=== PATIENT | female | born 1940 | race Caucasian/White ===

== ENCOUNTER 2018-05-20 10:50 | Outpatient (REF) | payer MEDICARE, BC, SELFPAY ==
[2018-05-20 22:16] LABS: ALT 20 U/L (12-78); AST 19 U/L (15-37); Albumin 3.8 g/dL (3.4-5.0); Alkaline Phosphatase 100 U/L (46-116); Anion Gap 9.1 mmol/L (3-11); BUN 13 mg/dL (7-18); Bilirubin, Total 0.5 mg/dL (0.2-1.0); CO2 28.9 mmol/L (21.0-32.0); CREATININE 0.92 mg/dL (0.55-1.02); Calcium 8.7 mg/dL (8.5-10.1); Chloride 104 mmol/L (98-107); Cholesterol 236 mg/dL (50-200); Estimated GFR 59.04 (mL/min/1.73m2); Glucose 103 mg/dL (70-100); HDL Cholesterol 57 mg/dL (40-60); LDL CHOLESTEROL 169 mg/dL (<100); Potassium 4.1 mmol/L (3.5-5.1); Sodium 142 mmol/L (136-145); TROPONIN-I 10.5 ug/mL (4.0-12.0); Triglyceride 98 mg/dL (30-150)
== END 2018-05-20 11:10 ==
LOC: NCHCN 10:50
PROVIDERS: PCP Family Medicine; Visit Provider Family Medicine
DX: G50.0 Trigeminal neuralgia (principal); Z51.81 Encounter for therapeutic drug level monitoring; Z79.899 Other long term (current) drug therapy
CPT/HCPCS: 80053; 80061; 83721; 80156

== ENCOUNTER 2018-06-02 00:34 | Outpatient (CLI) | payer MEDICARE, BC, SELFPAY ==
--- NOTE | 2018-06-02 11:20 | DI.MAMMO_ITS ---
SYMPTOM/DIAGNOSIS: SCREENING, [facility], Z00.00 MAMMOGRAMS: Mammograms were interpreted according to the usual protocol including computer analysis with CAD system, tomosynthesis and C view imaging. Comparison is made with prior examinations. Breast density, C. No suspicious masses or microcalcifications are seen. There are two well circumscribed nodules in the posterior right breast in the axillary region. These likely reflect lymph nodes. They were not visualized on prior examination however. Spot compression views and a right breast ultrasound are requested to evaluate these two nodular densities in the upper posterior right breast. IMPRESSION: Additional views of the right breast as described. Category 0. MQSA ASSESSMENT OF FINDINGS: Incomplete: Needs additional imaging evaluation. Category 0. Patient will receive a letter notifying them of these results. Bi-RADS category C. The breasts are heterogeneously dense, which may obscure small masses.
== END 2018-06-02 00:54 ==
PROVIDERS: PCP Family Medicine; Visit Provider Family Medicine
DX: Z12.31 Encounter for screening mammogram for malignant neoplasm of breast (principal); R92.8 Other abnormal and inconclusive findings on diagnostic imaging of breast
CPT/HCPCS: 77063; 77067

== ENCOUNTER 2018-06-03 16:18 | Outpatient (REF) | payer MEDICARE, BC, SELFPAY ==
--- NOTE | 2018-06-03 13:30 | SKI_PTH ---
PATIENT: Iona Carvalho LOC: [facility] U#:[id number] AGE/SX: 78/F ROOM: RE06/03/[address]: Magdalena Pritchett V : 1940 BED: DIS: 06/03/2018 SPEC #: [id number] RECD: 06/05/18 12:49 STATUS: MIRYAM FERMIN #: [id number] [place]: 06/03/18 13:[address]: Magdalena Pritchett V DEPT: Surgical Specimen RECD BY: Shae Law Tissues: 1 - SKIN BIOPSY(SHAVE/PUNCH) Procedures: SKIN LEVEL 4 Comments: [id number]
== END 2018-06-03 16:38 ==
LOC: NCHCN 16:18
PROVIDERS: PCP Family Medicine; Visit Provider Family Medicine
DX: L82.1 Other seborrheic keratosis (principal)
CPT/HCPCS: 88305

== ENCOUNTER 2018-06-10 00:54 | Outpatient (CLI) | payer MEDICARE, BC, SELFPAY ==
--- NOTE | 2018-06-10 10:26 | DI.COMBO_ITS ---
SYMPTOM/DIAGNOSIS: F/U MAMMO AND SPOT, NODULES FOLLOW UP MEDIOLATERAL COMPRESSION SPOT FILMS OF RIGHT BREAST AND RIGHT BREAST ULTRASOUND: Additional images are interpreted according to the usual protocol including tomosynthesis and 2D imaging. Two small, well circumscribed areas of nodularity are demonstrated, likely representing lymph nodes. At ultrasound, two small adjacent lymph nodes are identified. There is no evidence of a mass. SUMMARY: Normal lymph nodes are identified in the right breast. No mass is evident. MQSA ASSESSMENT OF FINDINGS: Negative with benign findings. Category 2. Patient will receive a letter notifying them of these results. Bi-RADS category C. The breasts are heterogeneously dense, which may obscure small masses.
== END 2018-06-10 01:14 ==
PROVIDERS: PCP Family Medicine; Visit Provider Family Medicine
DX: Z12.31 Encounter for screening mammogram for malignant neoplasm of breast (principal); R92.8 Other abnormal and inconclusive findings on diagnostic imaging of breast; N60.81 Other benign mammary dysplasias of right breast; R59.0 Localized enlarged lymph nodes
CPT/HCPCS: 76642; 77063; 77067

== ENCOUNTER 2018-11-28 07:31 | Day surgery (SDC) | payer MEDICARE, BC, SELFPAY ==
--- NOTE | 2018-11-27 12:10 | W.PIPPEYE ---
History of Present Illness Chief Complaint: Progressive decreased vision, left eye Narrative: The patient is a 78-year-old lady with history of diminished visual acuity in both eyes at both distance and near. She notes significant difficulty reading words on television and has trouble driving at night due to glare and halos. On examination she was noted to have moderate bilateral nuclear cataracts with visual acuity of 20/40 in each eye. The option of cataract surgery was offered to the patient and she wished to proceed. NOTE: The Chief Complaint, HPI, Past Medical History, Past Surgical History, Family History, Social History, Medications, and complete Ophthalmic Exam with detailed Assessment and Plan have already been documented in the patient's outpatient ophthalmic record and are not covered again in detail here. PFS Medical History History of cardiac murmur (Acute) Hx of fracture of wrist (Acute) GERD HEART PALPITATIONS History of malignant melanoma Hypercholesterolemia MRSA Meniere's disease Osteopenia Uterine prolapse (05/15/13) Surgical History COLONOSCOPY Cholecystectomy LYMPH NODE REMOVAL Skin Cancer Removal Family History Mother Personal history of malignant neoplasm Father Dementia Brother No problems noted. Social History Smoking/Tobacco Use Status: Former Tobacco Use Drug use: Never Meds Home Medications Medication Instructions Recorded Confirmed Type calcium carbonate 500 mg CH DAILY 12/06/12 11/25/18 History Red Yeast Rice BID 05/15/13 History multivitamin [Multi Vitamin Daily] 1 ea PO DAILY 05/15/13 11/25/18 History carbamazepine [Tegretol XR] 100 mg PO . PRESCRIBED 11/25/18 11/25/18 History Allergies Allergy/AdvReac Type Severity Reaction Status Date / Time Penicillins Allergy Skin Rash Unverified 11/25/18 08:49 Exam OCULAR EXAM:: Most recent ocular examination is significant for visual acuity of 20/40 OD, 20/40 OS. Intraocular pressure is 15 OD, 16 OS. Pupils equal, round, and reactive without afferent pupillary defect extraocular motility is normal clinical examination reveals pupils dilating to 4.5 mm OU. 2-3+ nuclear cataract OU. Funduscopic examination shows disc cupping of 0.4 OU with normal color. The optic nerves have good perfusion and normal color. The retinal vasculature is normal without significant tortuosity or abnormality. The maculas are normal in appearance with normal contour and foveal reflex appropriate for age. The peripheral retina and vitreous are normal. BRIGHTNESS ACUITY TESTING (BAT):: Brightness acuity testing of the left eye off is 20/40. Low is 20/50. Medium is 20/60. High is 20/80. Assessment and Plan (1) Nuclear sclerotic cataract of left eye: Current visit: No Status: Acute Assessment: Visually significant cataract, left eye. Plan: Cataract extraction with intraocular lens implantation, left eye Note: NOTE:: The details of the planned surgery, including the risks, indications,limitations,expectations,outcome and possible complications were explained to the patient. The patient understands the complications including, but not limited to: infection, hemorrhage, posterior dislocation of the lens or nuclear fragments which may require the intervention of a vitreoretinal surgeon, possible loss of the eye, or from anesthetic complications. The patient has been made aware of the option of not having surgery, that vision following surgery may not be equal to that prior to surgery, and that the planned surgery may not achieve the intended results. Following this discussion, which the patient appeared to understand, the patient wishes to proceed with cataract surgery with lens implantation of the affected eye to improve and maximize vision.
[2018-11-28] MEDS: Tetracaine 0.5% 4 ML BTL OS ×4 (08:01→09:16)
[2018-11-28 08:02] VITALS: BP 112/62; PULSE 72; RESP 16; TEMP 36.1; O2SAT 98
[2018-11-28] MEDS: Tropicam./Phenyleph. (1/2.5%) 5 ML BTL OS ×3 (08:02→08:15)
--- NOTE | 2018-11-28 08:50 | W.PM.DSUDISC ---
Discharge Plan Disposition Patient Disposition: HOME Condition: Stable Discharge Details Attending Provider: Chino Wahl Primary Care Provider: Magdalena Pritchett V Home Meds and New Rx's Prescriptions: No Action multivitamin [Daily Multi-Vitamin] 1 EACH tablet 1 ea PO DAILY RF: 0 red yeast rice BID RF: 0 calcium carbonate 500 MG tablet,chewable 500 mg CH DAILY RF: 0 carbamazepine [Tegretol XR] 100 mg Tablet Extended Release 12 Hr 100 mg PO . PRESCRIBED RF: 0 Discharge Instructions Stand Alone Forms: Post-op Topical Cataract, Danial Lovett (DSU) Discharge Orders Discharge Orders: Discharge Order (Routine); Ordered 11/28/18 Ordered By: Chino Wahl DS: Diagnosis Discharge Diagnosis (1) Nuclear sclerotic cataract of left eye: Status: Resolved (2) Status post cataract extraction and insertion of intraocular lens of left eye: Status: Chronic
--- NOTE | 2018-11-28 08:51 | ROE_ITS ---
Date of service: 11/28/18 Time of Service: 09:44 Operative Note DATE OF PROCEDURE: 11/28/18 PRE-OP DIAGNOSIS: Cataract, left eye POST-OP DIAGNOSIS: same PROCEDURE: Cataract extraction using phacoemulsification with intraocular lens implant, left eye SURGEON: Chino Wahl ANESTHESIA: MAC and local (sub-tenon's anesthetic infiltration) PATHOLOGY: none sent COMPLICATIONS: None Patient was transported to: same day Patient's condition: stable Implants: Brian and Brian Vision / [employer] Tecnis ZCB00 Indications: Progressive decreased vision due to cataract, left eye Procedure Description: CATARACT SURGERY OPERATIVE REPORT PREOPERATIVE DIAGNOSIS: Nuclear cataract, left eye POSTOPERATIVE DIAGNOSIS: Same OPERATION: Cataract extraction using phacoemulsification with posterior chamber intraocular lens implant, left eye. IOL: IOL Sweetbread Trimmer/Model: J&J Vision / RUBI Tecnis ZCB00 IOL Power: + 22.50 diopters IOL Serial Number: [id number] Optic Diameter: 6.0mm Haptic/Overall Diameter: 13.0mm PHACO INFO: Paul Planning Mediaurion Vision System with OZil and Active Fluidics Cumulative Dispersed Energy (CDE): 16.25 seconds SURGEON: Chino Wahl MD, YELENA ANESTHESIA: Monitored Anesthesia Care (MAC), with local sub-tenon's anesthetic infiltration COMPLICATIONS: None SPECIMENS: None INDICATIONS FOR PROCEDURE: The patient is a 78-year-old lady with history of diminished visual acuity her left eye secondary to the development of nuclear cataract. She was significantly symptomatic that she desired cataract surgery and attempt to improve and maximize her vision. PROCEDURE: The correct surgical eye was identified and marked as the left eye and the pupil was dilated in the preoperative area using mydriatics and cycloplegics. The dilated pupil size was 6.0 mm. Oral sedation was administered in the form of an Imprimis MKO Melt (midazolam 3mg/ketamine 25mg/ondansetron 2mg). The patient was brought to the operating room where cardiopulmonary monitoring was instituted and surgical time-out was performed, confirming the correct operative eye and IOL power. Topical anesthesia was administered and ophthalmic povidone-iodine 5% was instilled into the conjunctival fornices. Lidocaine gel was applied to the cornea and the victoriano-ocular area was prepped with Betadine 10% solution and draped in the usual sterile fashion for intraocular surgery, including an aperture drape. A Tegaderm transparent film dressing was cut in half and used to cover the lashes and lid margins. Care was taken to sequester the lashes and lid margins under the Tegaderm dressing. A lid speculum was placed between the lids of the operative eye and the Felipa-Christina operating microscope was maneuvered into position. Roque scissors were then used to make a conjunctival buttonhole approximately 6mm posterior to the limbus in the inferonasal quadrant. Blunt dissection was carried out to expose bare sclera, and a blunt-tipped sub-tenon?s anesthesia cannula was introduced and passed posteriorly along the globe where non- preserved plain lidocaine was injected into posterior sub-Tenon?s space. A sideport knife was used to make a paracentesis port superior/superiortemporal, and the anterior chamber was filled with Healon GV. A 2.4mm keratome knife was used to create a half-thickness groove at the limbus and then to construct a three-plane near-clear corneal tunnel extending 2.0mm into clear cornea in the temporal position. . A flap was raised on the anterior capsule and capsulorhexis forceps were used to complete a continuous curvilinear capsulorhexis of 5.0 mm. Balanced salt solution was then used to perform cortical cleaving hydrodissection and nuclear hydrodelineation until the lens could be freely rotated within the capsular bag. The lens nucleus was then disassembled and removed within the capsular bag and iris plane using phacoemulsification. Residual cortical material was removed using the 45-degree angled silicone I/A tip with 0.3mm port. The posterior capsule was carefully polished to remove as much residual lens epithelial cells as safely possible. The capsular bag was then inflated and the anterior chamber deepened with viscoelastic. The lens implant described above was inserted into the capsular bag using the RUBI Platin um Injector. A Kuglen hook was used to dial the IOL into position. Residual viscoelastic was then removed first from posterior to the IOL, then from the anterior chamber using the I/A handpiece. The lens implant was noted to center nicely within the capsular bag. The incisions were stromally hydrated, and the anterior chamber was reformed using BSS. Then 0.4cc of moxifloxacin 1.5mg/ml were injected into the capsular bag and anterior chamber. The incisions were checked with a Weck spear and found to be secure. Several drops of ophthalmic povidone-iodine 5% were then applied to the eye followed by two drops of Imprimis combination gatifloxacin/dexamethasone solution. The drapes were removed and a clear plastic protective eye shield was placed over the eye. The patient was then returned to Same Day Surgery in stable condition.
[2018-11-28] MEDS: Lidocaine 2% Jelly 6 ML SYR (09:18)
[2018-11-28] MEDS: Lidocaine 1% Pres-Free 5 ML VIAL (09:20)
[2018-11-28] MEDS: Balanced Salt Soln.-PLUS 500 ML BAG (09:20)
[2018-11-28] MEDS: Povidone-Iodine Ophth 30 ML BTL (09:24)
[2018-11-28 10:11] VITALS: BP 112/66; PULSE 68; RESP 16; TEMP 36.1; O2SAT 96
== END 2018-11-28 10:53 | disposition home or self-care (01) ==
PROVIDERS: PCP Family Medicine; Visit Provider Ophthalmology
PROC: (CPT 66984; principal; 2018-11-28 09:30)
DX: H25.12 Age-related nuclear cataract, left eye (principal); K21.9 Gastro-esophageal reflux disease without esophagitis
CPT/HCPCS: 66984; V2632

== ENCOUNTER 2019-01-05 08:56 | Day surgery (SDC) | payer MEDICARE, BC, SELFPAY ==
--- NOTE | 2019-01-04 18:13 | POEE_ITS ---
History of Present Illness Chief Complaint: Progressive decreased vision, right eye Narrative: The patient is a 78-year old lady with history of diminished visual acuity in both eyes, mostly at intermediate. She has significant difficulty reading words on television. She also notes significant difficulty with glare from headlights at night. On examination she was noted to have moderate bilateral nuclear cataracts with best corrected vision of 20/30 in each eye, but with significant glare disability. She underwent cataract surgery in the left eye on 11/28/2018. Postoperatively she has regained best corrected vision of 20/25 in the left eye. She now presents for cataract surgery in the right eye. NOTE: The Chief Complaint, HPI, Past Medical History, Past Surgical History, Family History, Social History, Medications, and complete Ophthalmic Exam with detailed Assessment and Plan have already been documented in the patient's outpatient ophthalmic record and are not covered again in detail here. PFSH Family History Mother Personal history of malignant neoplasm Father Dementia Brother No problems noted. Social History Smoking/Tobacco Use Status: Former Tobacco Use Alcohol Intake: current Alcohol Intake frequency: 0-2 drinks per day Alcohol type: wine Drug use: Never Do you feel safe at home: Yes Meds Home Medications Medication Instructions Recorded Confirmed Type calcium carbonate 500 mg CH DAILY 12/06/12 11/28/18 History Red Yeast Rice BID 05/15/13 History multivitamin [Multi Vitamin Daily] 1 ea PO DAILY 05/15/13 11/28/18 History carbamazepine [Tegretol XR] 100 mg PO . PRESCRIBED 11/25/18 11/28/18 History Allergies Allergy/AdvReac Type Severity Reaction Status Date / Time Penicillins Allergy Skin Rash Verified 11/28/18 07:58 Exam OCULAR EXAM:: Most recent ocular examination is significant for best corrected vision of 20/40 OD, 20/25 OS. Intraocular pressure is 15 OD, 17 OS. Pupils equal, round, and reactive without afferent pupillary defect extraocular motility is normal. Slit-lamp examination shows pupils dilating to 4.5 mm OD, 5 mm OS. 2-3+ nuclear cataract OD. Well-positioned PCIOL OS with clear posterior capsule. Dilated funduscopic examination shows disc cupping of 0.4 OU with good color. The optic nerves have good perfusion and normal color. The retinal vasculature is normal without significant tortuosity or abnormality. The m aculas are normal in appearance with normal contour and foveal reflex appropriate for age. The peripheral retina and vitreous are normal. BRIGHTNESS ACUITY TESTING (BAT):: Brightness acuity testing of the right eye off is 20/30. Low is 20/50. Medium is 20/60. On the high setting is 20/80. Assessment and Plan (1) Nuclear sclerotic cataract of right eye: Current visit: No Status: Acute Assessment: Visually significant cataract, right eye. Plan: Cataract extraction with intraocular lens implantation, right eye Note: NOTE:: The details of the planned surgery, including the risks, indications,limitations,expectations,outcome and possible complications were explained to the patient. The patient understands the complications including, but not limited to: infection, hemorrhage, posterior dislocation of the lens or nuclear fragments which may require the intervention of a vitreoretinal surgeon, possible loss of the eye, or from anesthetic complications. The patient has been made aware of the option of not having surgery, that vision following surgery may not be equal to that prior to surgery, and that the planned surgery may not achieve the intended results. Following this discussion, which the patient appeared to understand, the patient wishes to proceed with cataract surgery with lens implantation of the affected eye to improve and maximize vision.
--- NOTE | 2019-01-05 08:04 | W.PM.DSUDISC ---
Discharge Plan Disposition Patient Disposition: HOME Condition: Stable Discharge Details Attending Provider: Chino Whal Primary Care Provider: Magdalena Pritchett V Home Meds and New Rx's Prescriptions: No Action multivitamin [Daily Multi-Vitamin] 1 EACH tablet 1 ea PO DAILY RF: 0 red yeast rice BID RF: 0 calcium carbonate 500 MG tablet,chewable 500 mg CH DAILY RF: 0 carbamazepine [Tegretol XR] 100 mg Tablet Extended Release 12 Hr 100 mg PO . PRESCRIBED RF: 0 Discharge Instructions Stand Alone Forms: Post-op Topical Cataract, Danial Lovett (DSU) Discharge Orders Discharge Orders: Discharge Order (Routine); Ordered 01/05/19 Ordered By: Chino Wahl DS: Diagnosis Discharge Diagnosis (1) Nuclear sclerotic cataract of right eye: Status: Resolved (2) Status post cataract extraction and insertion of intraocular lens of right eye: Status: Chronic
--- NOTE | 2019-01-05 08:05 | ROE_ITS ---
Date of service: 01/05/19 Operative Note PRE-OP DIAGNOSIS: Cataract, right eye PROCEDURE: Cataract extraction using phacoemulsification with intraocular lens implant, right eye SURGEON: Chino Wahl ANESTHESIA: MAC and local (sub-tenon's anesthetic infiltration) ESTIMATED BLOOD LOSS: 0 PATHOLOGY: none sent COMPLICATIONS: None Patient was transported to: same day Patient's condition: stable Implants: Brian and Brian Vision / [employer] Tecnis ZCB00 i ntraocular lens Indications: Progressive decreased vision due to cataract, right eye Procedure Description: CATARACT SURGERY OPERATIVE REPORT PREOPERATIVE DIAGNOSIS: [] POSTOPERATIVE DIAGNOSIS: Same OPERATION: Cataract extraction using phacoemulsification with posterior chamber intraocular lens implant, right eye. IOL: IOL Hand Fabric Cutter/Model: J&J Pear Deck / RUBI Tecnis ZCB00 IOL Power: +[] diopters IOL Serial Number: [] Optic Diameter: 6.0mm Haptic/Overall Diameter: 13.0mm PHACO INFO: Paul My1[employer]on Vision System with OZil and Active Fluidics Cumulative Dispersed Energy (CDE): [] seconds SURGEON: Chino Wahl MD, YELENA ANESTHESIA: Monitored Anesthesia Care (MAC), with local sub-tenon's anesthetic infiltration COMPLICATIONS: None SPECIMENS: None INDICATIONS FOR PROCEDURE: [] PROCEDURE: The correct surgical eye was identified and marked as the right eye and the pupil was dilated in the preoperative area using mydriatics and cycloplegics. The dilated pupil size was [] mm. Oral sedation was administered in the form of an Imprimis MKO Melt (midazolam 3mg/ketamine 25mg/ondansetron 2mg). The patient was brought to the operating room where cardiopulmonary monitoring was instituted and surgical time-out was performed, confirming the correct operative eye and IOL power. Topical anesthesia was administered and ophthalmic povidone-iodine 5% was instilled into the conjunctival fornices. Lidocaine gel was applied to the cornea and the victoriano-ocular area was prepped with Betadine 10% solution and draped in the usual sterile fashion for intraocular surgery, including an aperture drape. A Tegaderm transparent film dressing was cut in half and used to cover the lashes and lid margins. Care was taken to sequester the lashes and lid margins under the Tegaderm dressing. A lid speculum was placed between the lids of the operative eye and the Felipa-Christina operating microscope was maneuvered into position. Roque scissors were then used to make a conjunctival buttonhole approximately 6mm posterior to the limbus in the inferonasal quadrant. Blunt dissection was carried out to expose bare sclera, and a blunt-tipped sub-tenon?s anesthesia cannula was introduced and passed posteriorly along the globe where non- preserved plain lidocaine was injected into posterior sub-Tenon?s space. A sideport knife was used to make a paracentesis port inferiortemporally, and the anterior chamber was filled with Healon GV. A 2.4mm keratome knife was used to create a half-thickness groove at the limbus and then to construct a three-plane near-clear corneal tunnel extending 2.0mm into clear cornea in the superiortemporal position. . A flap was raised on the anterior capsule and capsulorhexis forceps were used to complete a continuous curvilinear capsulorhexis of []mm. Balanced salt solution was then used to perform cortical cleaving hydrodissection and nuclear hydrodelineation until the lens could be freely rotated within the capsular bag. The lens nucleus was then disassembled and removed within the capsular bag and iris plane using phacoemulsification. Residual cortical material was removed using the I/A handpiece. The posterior capsule was carefully polished to remove as much residual lens epithelial cells as safely possible. The capsular bag was then inflated and the anterior chamber deepened with viscoelastic. The lens implant described above was inserted into the capsular bag using the RUBI Franklin Injector. A Kuglen hook was used to dial the IOL into position. Residual viscoelastic was then removed first from posterior to the IOL, then from the anterior chamber using the I/A handpiece. The lens implant was noted to center nicely within the capsular bag. The incisions were stromally hydrated, and the anterior chamber was reformed using BSS. Then 0.4cc of moxifloxacin 1.5mg/ml were injected into the capsular bag and anterior chamber. The incisions were checked with a Weck spear and found to be secure. Several drops of ophthalmic povidone-iodine 5% were then applied to the eye followed by two d rops of Imprimis combination prednisolone/gatifloxacin/bromfenac solution. The drapes were removed and a clear plastic protective eye shield was placed over the eye. The patient was then returned to Same Day Surgery in stable condition.
[2019-01-05 09:19] VITALS: BP 136/70; PULSE 69; RESP 16; TEMP 36.2; O2SAT 97
[2019-01-05] MEDS: Tropicam./Phenyleph. (1/2.5%) 5 ML BTL OD ×3 (09:31→09:45)
[2019-01-05] MEDS: Tetracaine 0.5% 4 ML BTL OD ×4 (09:31→10:33)
[2019-01-05] MEDS: Povidone-Iodine Ophth 30 ML BTL ×2 (10:33→11:02)
[2019-01-05] MEDS: Lidocaine 2% Jelly 6 ML SYR (10:33)
[2019-01-05] MEDS: Balanced Salt Soln.-PLUS 500 ML BAG (10:40)
[2019-01-05] MEDS: Lidocaine 1% Pres-Free 5 ML VIAL (10:40)
--- NOTE | 2019-01-05 11:08 | W.PM.OP ---
Date of service: 01/05/19 Time of Service: 11:08 Operative Note PRE-OP DIAGNOSIS: Cataract, right eye, with poorly dilating pupil POST-OP DIAGNOSIS: same PROCEDURE: 1. Cataract extraction by phacoemulsification with intraocular lens implantation, right eye, with pupillary expansion device SURGEON: Chino Wahl ANESTHESIA: MAC (with local sub-tenon's anesthetic injection) PATHOLOGY: none sent COMPLICATIONS: None Patient was transported to: same day Patient's condition: stable Implants: Brian and Brian / [employer] Tecnis [id number] Indications: Progressive decreased vision due to cataract, right eye, with poorly dilating pupil Procedure Description: CATARACT SURGERY OPERATIVE REPORT PREOPERATIVE DIAGNOSIS: 1. Nuclear cataract, right eye 2. Poorly dilating pupil, right eye POSTOPERATIVE DIAGNOSIS: Same OPERATION: 1. Cataract extraction using phacoemulsification with posterior chamber intraocular lens implant, right eye. 2. Pupillary dilation and iris stabilization using Malyugin Ring IOL: IOL Motorcyles Final Inspector/Model: Brian & Brian / RUBI Tecnis [id number] IOL Power: + 23.0 diopters IOL Serial Number: [id number] Optic Diameter: 6.0mm Haptic/Overall Diameter: 13.0mm PHACO INFO: Paul [employer]ion Vision System with OZil and Active Fluidics Cumulative Dispersed Energy (CDE): 14.31 seconds SURGEON: Chino Wahl MD, YELENA ANESTHESIA: Monitored Anesthesia Care (MAC), with local sub-tenon's anesthetic infiltration COMPLICATIONS: None SPECIMENS: None INDICATIONS FOR PROCEDURE: The patient is a 78-year-old lady with history of diminished visual acuity in both eyes secondary to the development of bilateral nuclear cataracts. She has already undergone cataract surgery in her left eye and is doing well postoperatively. She now presents for cataract surgery in the right eye. PROCEDURE: The correct surgical eye was identified and marked as the right eye and the pupil was dilated in the preoperative area using mydriatics and cycloplegics. The dilated pupil size was 4.5 mm. Oral sedation was administered in the form of an Imprimis MKO Melt (midazolam 3mg/ketamine 25mg/ondansetron 2mg). The patient was brought to the operating room where cardiopulmonary monitoring was instituted and surgical time-out was performed, confirming the correct operative eye and IOL power. Topical anesthesia was administered and ophthalmic povidone-iodine 5% was instilled into the conjunctival fornices. Lidocaine gel was applied to the cornea and the victoriano-ocular area was prepped with Betadine 10% solution and draped in the usual sterile fashion for intraocular surgery, including an aperture drape. A Tegaderm transparent film dressing was cut in half and used to cover the lashes and lid margins. Care was taken to sequester the lashes and lid margins under the Tegaderm dressing. A lid speculum was placed between the lids of the operative eye and the Felipa-Christina operating microscope was maneuvered into position. Roque scissors were then used to make a conjunctival buttonhole approximately 6mm posterior to the limbus in the inferonasal quadrant. Blunt dissection was carried out to expose bare sclera, and a blunt-tipped sub-tenon?s anesthesia cannula was introduced and passed posteriorly along the globe where non-preserved plain lidocaine was injected into posterior sub-Tenon?s space. A sideport knife was used to make a paracentesis port inferiortemporally. The anterior chamber was filled with Healon GV. A 2.4mm keratome knife was used to create a half-thickness groove at the limbus and then to construct a three-plane near-clear corneal tunnel extending 2.0mm into clear cornea superiortemporally. A 7.0 mm Malyugin Ring was then inserted into the pupillary space and engaged with the Kuglen hook. A flap was raised on the anterior capsule and capsulorhexis forceps were used to complete a continuous curvilinear capsulorhexis of []mm. Balanced salt solution was then used to perform cortical cleaving hydrodissection and nuclear hydrodelineation until the lens could be freely rotated within the capsular bag. The lens nucleus was then disassembled and removed within the capsular bag and iris plane using phacoemulsification. Residual cortical material was removed using the 45-degree angled silicone I/A tip with 0.3mm port. The posterior capsule was carefully polished to remove as much residual lens epithelial cells as safely possible. The capsular bag was then inflated and the anterior chamber deepened with viscoelastic. The lens implant described above was inserted into the capsular bag using the RUBI Cisne Injector. A Kuglen hook was used to dial the IOL into position. The Malyugin Ring was removed in the reverse order of its insertion. Residual viscoelastic was then removed first from posterior to the IOL, then from the anterior chamber using the I/A handpiece. The lens implant was noted to center nicely within the capsular bag. The incisions were stromally hydrated, and the anterior chamber was reformed using BSS. Then 0.4cc of moxifloxacin 1.5mg/ml were injected into the capsular bag and anterior chamber. The incisions were checked with a Weck spear and found to be secure. Several drops of ophthalmic povidone-iodine 5% were then applied to the eye followed by two drops of Imprimis combination prednisolone/gatifloxacin/bromfenac solution. The drapes were removed and a clear plastic protective eye shield was placed over the eye. The patient was then returned to Same Day Surgery in stable condition.
[2019-01-05 11:50] VITALS: BP 103/69; PULSE 85; RESP 18; TEMP 36.4; O2SAT 95
== END 2019-01-05 11:55 | disposition home or self-care (01) ==
LOC: SUR 08:56
PROVIDERS: PCP Family Medicine; Visit Provider Ophthalmology
PROC: (CPT 66982; principal; 2019-01-05 11:30)
DX: H25.11 Age-related nuclear cataract, right eye (principal); H57.09 Other anomalies of pupillary function; Z98.42 Cataract extraction status, left eye; Z96.1 Presence of intraocular lens; K21.9 Gastro-esophageal reflux disease without esophagitis
CPT/HCPCS: 66982; V2632

== ENCOUNTER 2019-05-21 11:21 | Outpatient (REF) | payer MEDICARE, BC, SELFPAY ==
[2019-05-21 21:28] LABS: HCT 38.6 % (36.0-46.0); HGB 12.5 g/dL (12.0-15.5); Mean Corp. HGB Concentration 32.4 g/dL (32.0-36.0); Mean Corpuscular Hemoglobin 29.6 pg (27.0-33.0); Mean Corpuscular Volume 91.5 fL (80-95); Mean Platelet Volume 10.1 fL (8.0-11.0); Platelet Count 321 x1000/uL (130-400); RBC 4.22 m/cumm (4.00-5.20); White Blood Cell Count 5.45 k/cumm (4.4-10.8)
[2019-05-21 22:06] LABS: ALT 21 U/L (14-59); AST 17 U/L (15-37); Albumin 3.8 g/dL (3.4-5.0); Alkaline Phosphatase 92 U/L (46-116); Anion Gap 6.9 mmol/L (3-11); BUN 13 mg/dL (7-18); Bilirubin, Total 0.3 mg/dL (0.2-1.0); CO2 28.1 mmol/L (21.0-32.0); CREATININE 0.88 mg/dL (0.55-1.02); Calcium 8.6 mg/dL (8.5-10.1); Chloride 107 mmol/L (98-107); Ferritin 58 ng/mL (8-388); Glucose 94 mg/dL (70-100); Potassium 4.4 mmol/L (3.5-5.1); Sodium 142 mmol/L (136-145); TSH (W/Ref FT4) 1.17 uIU/mL (0.36-3.74); Total Protein 6.8 g/dL (6.4-8.2); Vitamin B12 240 pg/mL (193-986)
== END 2019-05-21 11:41 ==
LOC: NCHCN 11:21
PROVIDERS: PCP Family Medicine; Visit Provider Family Medicine
DX: R53.83 Other fatigue (principal); G50.0 Trigeminal neuralgia; G25.81 Restless legs syndrome
CPT/HCPCS: 80053; 85027; 82607; 82728; 84443

== ENCOUNTER 2019-06-04 01:12 | Outpatient (CLI) | payer MEDICARE, BC, SELFPAY ==
--- NOTE | 2019-06-04 14:30 | DI.DEXA_ITS ---
EXAM: XR DEXA BONE DENSITY W/WO CHLOE INDICATION: OSTEOPOROSIS M81.0. COMPARISON: Previous examination of April 2014 TECHNIQUE: 2D digital imaging was performed. FINDINGS: DEXA scan was performed according to the usual protocol. Findings for left hip scanning are a T-scor e of -2.1 with left femoral neck T-score -2.4. Previous examination of April 2014 showed left hi p T-score of -1.5. Lumbar spine scanning shows T-score of -1.5, unchanged from April 2014. Left forearm scanning shows T-score of -2.9, prior examination of 2013 showed T-score of -2.2. IMPRESSION: Findings consistent with osteoporosis according to the WHO criteria. Lateral vertebral scanogram show s no evidence of a vertebral compression fracture.
== END 2019-06-04 01:32 ==
PROVIDERS: PCP Family Medicine; Visit Provider Family Medicine
DX: M81.0 Age-related osteoporosis without current pathological fracture (principal)
CPT/HCPCS: 77080

== ENCOUNTER 2019-07-25 17:16 | Emergency (ER) | payer MEDICARE, BC, SELFPAY ==
[2019-07-25 17:30] VITALS: BP 124/75; PULSE 84; RESP 16; TEMP 37.5; O2SAT 96
--- NOTE | 2019-07-25 18:14 | W.ED.GENAD ---
Discharge Plan Disposition Patient Disposition: HOME Condition: Good Discharge Details Chief Complaint: FacialProb Clinical Impression: Contusion of nose, Abrasion of knee, Fall Primary Care Provider: Magdalena Pritchett V ED Provider: Adriana King Home Meds and New Rx's Prescriptions: No Action multivitamin [Daily Multi-Vitamin] 1 EACH tablet 1 ea PO DAILY RF: 0 red yeast rice BID RF: 0 calcium carbonate 500 MG tablet,chewable 500 mg CH DAILY RF: 0 carbamazepine [Tegretol XR] 100 mg Tablet Extended Release 12 Hr 100 mg PO . PRESCRIBED RF: 0 Discharge Instructions Instructions: Contusion in Adults (ED) Additional Instructions: Rest activities as tolerated. Tylenol for soreness if needed. Ice to the nose if needed. Wash areas of abrasion with soap and water once or twice daily. Use antibiotic ointment over wounds. Observe for any signs of infection. Ice to the knee for swelling. Recheck with primary care doctor if not improving in the next 3 to 5 days. Return for any alarming symptoms or worsening if needed sooner. Medical Decision Making 79-year-old patient whom presents after falling directly onto her nose and forehead. Patient tripped on uneven ground fell forward denies loss of consciousness. Reports mild forehead pressure with no associated headache. Denies dizziness, nausea, vomiting. Patient has no numbness or tingling of arms or legs. Denies neck pain. Patient primarily concerned with nose abrasions and possible fracture. Denies epistaxis. No septal hematoma noted on exam. Patient has benign neurologic exam at this time. An abrasion is noted to the left knee with full range of motion associated. Patient declines x-ray of the site she has no suspicion for fracture at this time. After discussion of close observation versus CT scan of the head it is the patient and 's preference to CT the head for safety given she fell directly onto her face from a standing position. Patient has unremarkable CT of head and facial bones for acute fracture. Chronic findings are noted. Degenerative changes in the TMJ are noted which patient is aware of. Patient counseled appropriately regarding care and management of her wounds as well as observation for any worsening and follow-up for any increase or persistent knee pain. Patient reports her understanding. The patient was stable and requested discharge. Prior to discharge, my usual and customary return precautions were reviewed with the patient - this included follow-up instructions and reasons to return to the Emergency Department if conditions worsens, does not improve as expected, or other new concerns arise. HPI General Date/Time Provider Initiated Documentation: 07/25/19 17:46. HPI Narrative: Is a 79-year-old woman who tripped on uneven ground falling forward striking her head on concrete. Patient denies significant headache but does report nasal injury. Bleeding from abrasions on the skin. No epistaxis. Patient reports nasal tenderness. Patient denies dizziness, nausea, vomiting or vision change. Denies neck pain. No radiating pain into arms or legs. No associated weakness in arms or legs. Patient does admit to an abrasion to the left anterior knee but no associated pain with ambulation. Patient believes her tetanus vaccine is up-to-date. Patient ambulating without difficulty. Facial pain worse with palpation of nose. Patient is not on a blood thinner. Related Data Home Medications Medication Instructions Recorded Confirmed calcium carbonate 500 mg CH DAILY 12/06/12 07/25/19 Red Yeast Rice BID 05/15/13 multivitamin [Multi Vitamin Daily] 1 ea PO DAILY 05/15/13 07/25/19 carbamazepine [Tegretol XR] 100 mg PO . PRESCRIBED 11/25/18 07/25/19 Allergies Allergy/AdvReac Type Severity Reaction Status Date / Time Penicillins Allergy Skin Rash Verified 07/25/19 17:35 General Stated Complaint: FacialProb JAMIN: 3 Review of Systems All systems reviewed & are unremarkable except as noted in HPI and below Constitutional Constitutional: Denies chills, Denies fatigue, Denies fever(s), Denies headache(s) and Denies malaise Eyes Eyes: Denies blurry vision and Denies diplopia ENT Ears, Nose, Mouth, and Throat: Denies headache(s) and Denies neck pain Cardiovascular Cardiovascular: Denies chest pain Respiratory Respiratory: Denies cough, Denies pain on inspiration and Denies pain with cough Musculoskeletal Musculoskeletal: Denies back pain, Denies deformity, Denies limited range of motion, Denies neck pain, Denies numbness, Denies radiating pain into limb and Denies tingling Integumentary/Breasts Skin/Breast: Reports wounds Neurologic Neurologic: Denies headache(s), Denies numbness and Denies tingling Endocrine Endocrine: Denies fatigue [facility] Medical History GERD HEART PALPITATIONS History of cardiac murmur (Acute) History of malignant melanoma Hx of fracture of wrist (Acute) Right closed reduction Hypercholesterolemia Meniere's disease MRSA Osteopenia Uterine prolapse (05/15/13) Family History Mother Personal history of malignant neoplasm COLON Father Dementia Brother No problems noted. Social History Smoking/Tobacco Use Status: Former Tobacco Use Alcohol Intake: current Alcohol Intake frequency: 0-2 drinks per day Alcohol type: wine Drug use: Never Do you feel safe at home: Yes Do you feel safe in your relationship?: Yes Exam Narrative Exam Narrative: CONST: Healthy appearing patient, in no acute distress. Well hydrated. Alert and alert. HENMT: Head nomocephalic, normal to inspection. Atraumatic. Hearing grossly normal. External ear canal no erythema or swelling. TM normal bilaterally. Nose abrasions noted over nasal bridge. Pain with palpation of the nasal bridge. No septal hematoma. No obvious epistaxis. Superficial abrasions noted with deep laceration. No rhinnorhea. Oral mucosa normal. Tounge normal. Dentition normal. Normal posterior oropharynx. Uvula midline. EYES: General normal appearance. Alignment normal. Eyelids normal. Conjunctiva normal. Sclera normal. PERRL. no nystagmus NECK: Normal visual inspection. FROM. No lymphadenopathy. Trachea midline. No Midline tenderness. CHEST: Normal insepection of the chest. RESP: Normal respiratory effort. Speaking full sentences. No cough. No wheezing. No retractions. Clear to auscaltation. Breath sound equal and present bilaterally. MUSCULOSKELETAL: Normal Gait. FROM of all extremities. Distal neurovascularly intact. Sensation intact distally. Left knee abrasion. Full range of motion. No bony tenderness with palpation. Straight leg raise intact. Flexion-extension intact. No distal weakness. SKIN: Normal. Dry. No rashes. Abrasion to nasal bridge as well as left knee NEURO: Alert and awake. Speech clear. Alert and oriented x 3. Speech is clear. Cranial nerves intact as tested III - XI. Normal [id number]-hf-[id number] test. No pronator drift. Normal heel-villatoro test. No Nystagmus. Gait normal. Strength intact in all extremities. Sensation intact in all extremities. PSYCH: Normal affect. Cooperative. Course Vital Signs Vital signs: Vital Signs Temperature 37.5 C 07/25/19 17:30 Pulse 84 07/25/19 17:30 Respiratory Rate 16 07/25/19 17:30 Blood Pressure 124/75 07/25/19 17:30 Pulse Oximetry 96 07/25/19 17:30 Temperature 37.5 C 07/25/19 17:30 Temperature Source Temporal Artery Scan 07/25/19 17:30 Pulse 84 07/25/19 17:30 Respiratory Rate 16 07/25/19 17:30 Respiratory Effort 07/25/19 17:45 Blood Pressure 124/75 07/25/19 17:30 Blood Pressure Position Supine 07/25/19 17:30 Pulse Oximetry 96 07/25/19 17:30 Oxygen Delivery Method Room Air 07/25/19 17:30 Oxygen Flow Rate 0 07/25/19 17:30 Pain Level 4 07/25/19 17:30
--- NOTE | 2019-07-25 18:21 | DI.CT_ITS ---
EXAM: CT HEAD FACIAL WO CLINICAL HISTORY: fall, head strike, nasal pain TECHNIQUE: The exam was performed according to the usual protocol without contrast. COMPARISON: No exams were available for comparison FINDINGS: CT head: The ventricles and sulci are consistent with patient's age. No acute intracranial hemorrhage. No ac kaylynn midline shift or mass effect is present. The ventricles are intact. The basilar cisterns are pa tent. There are areas of decreased attenuation in the white matter consistent with small vessel isch emic disease. The visualized paranasal sinuses are clear as are the mastoid air cells. The calvariu m is intact. CT facial: The orbits and retro-orbital soft tissues are unremarkable. The visualized paranasal sinuses are luz ar. No air-fluid levels are present within the sinuses. The nasal septum and ostiomeatal complexes are unremarkable. IMPRESSION: 1. No acute intracranial process. 2. No acute facial fracture.
[2019-07-25 18:36] VITALS: BP 122/78; PULSE 70; RESP 16; O2SAT 95
--- NOTE | 2019-07-25 18:36 | DI.VRAD_ITS ---
PROCEDURE INFORMATION: Exam: CT Maxillofacial Without Contrast Exam date and time: 07/25/2019 6:19 PM Age: 79 years old Clinical history: Injury or trauma; Fall; Initial encounter; Blunt trauma (contusions or hematomas); Nose TECHNIQUE: Imaging protocol: Computed tomography images of the face without contrast. COMPARISON: No relevant prior studies available. FINDINGS: Orbits: Orbits are normal. Globes are unremarkable. Sinuses: Normal. No air-fluid levels. Bones/joints: No acute fracture. Brain: No hemorrhage. No acute large vascular territory infarct. No mass effect. There is diffuse cerebral atrophy present, consistent with this patient's age. Incidental mineralization within the bilateral basal ganglia. Soft tissues: Unremarkable. IMPRESSION: No acute intracranial abnormality. PROCEDURE INFORMATION: Exam: CT Head Without Contrast Exam date and time: 07/25/2019 6:19 PM Age: 79 years old Clinical history: Injury or trauma; Fall; Initial encounter; Blunt trauma (contusions or hematomas); Nose TECHNIQUE: Imaging protocol: Computed tomography of the head without contrast. COMPARISON: No relevant prior studies available. FINDINGS: Brain: No hemorrhage. No large vascular territory infarct. No mass effect. Ventricles: Normal. No ventriculomegaly. Bones/joints: No acute fracture. Moderate degenerative changes of the left temporomandibular joint. Sinuses: Visualized sinuses are unremarkable. No fluid levels. Mastoid air cells: Visualized mastoid air cells are well aerated. Soft tissues: Unremarkable. IMPRESSION: No acute findings. Dictated and Authenticated by: Cayetano Arroyo MD. Ordering:ALLY Wright MD
[2019-07-25 19:03] VITALS: BP 129/66; PULSE 66; RESP 16; O2SAT 96
== END 2019-07-25 19:15 | disposition home or self-care (01) ==
PROVIDERS: Emergency Provider Physician Assistant; PCP Family Medicine
DX: S00.33XA Contusion of nose, initial encounter (principal); S80.212A Abrasion, left knee, initial encounter; W01.198A Fall on same level from slipping, tripping and stumbling with subsequent striking against other object, initial encounter
CPT/HCPCS: 99284; 70450; 70486; 99285

== ENCOUNTER 2020-05-26 11:19 | Outpatient (REF) | payer MEDICARE, BC, SELFPAY ==
[2020-05-26 18:45] LABS: HCT 38.6 % (36.0-46.0); HGB 12.4 g/dL (11.2-15.7); MCH 29.4 pg (27.0-33.0); MCHC 32.1 % (32.0-36.0); MCV 91.5 fL (80-95); MPV 9.6 fL (8.0-11.0); Platelet Count 339 10^3/uL (130-400); RBC 4.22 10^6/uL (3.93-5.22); RDW 13.6 % (11.7-14.6); RDW-SD 46.4 fL
[2020-05-26 19:01] LABS: ALT 30 U/L (14-59); AST 25 U/L (15-37); Albumin 3.9 g/dL (3.4-5.0); Alkaline Phosphatase 88 U/L (46-116); Anion Gap 7.5 mmol/L (3-11); BUN 9 mg/dL (7-18); Bilirubin, Total 0.4 mg/dL (0.2-1.0); CO2 28.5 mmol/L (21.0-32.0); CREATININE 0.91 mg/dL (0.55-1.02); Calcium 9.2 mg/dL (8.5-10.1); Chloride 105 mmol/L (98-107); Estimated GFR 59.48 (mL/min/1.73m2); Glucose 100 mg/dL (74-106); Potassium 4.3 mmol/L (3.5-5.1); Sodium 141 mmol/L (136-145)
== END 2020-05-26 11:39 ==
LOC: NCHCN 11:19
PROVIDERS: PCP Family Medicine; Visit Provider Family Medicine
DX: G50.0 Trigeminal neuralgia (principal); Z79.899 Other long term (current) drug therapy
CPT/HCPCS: 80053; 85027

== ENCOUNTER 2020-05-31 00:44 | Outpatient (CLI) | payer MEDICARE, BC, SELFPAY ==
--- NOTE | 2020-05-31 09:12 | DI.MAMMO_ITS ---
EXAM: MG MAMMO SCREENING CLINICAL HISTORY: SCREENING, PREVENTIVE HEALTH CARE,Z00.00 TECHNIQUE: Mammograms were interpreted according to the usual protocol including computer analysis w [employer] system, tomosynthesis and C-view imaging. COMPARISON: FINDINGS: The breasts are heterogeneously dense. No dominant mass or clumped microcalcification is identified in either breast. The current examination is compared with previous examinations including May 27 and there has been no gross interval change in appearance in comparison with the prior studies. IMPRESSION: No specific evidence of malignancy at this time. Routine screening examinations are suggested at yea rly intervals in this age group according to the ACS ACR guidelines. BI-RADS Category 1 - Negative Breast Density - Category C - Heterogeneously dense
== END 2020-05-31 01:04 ==
PROVIDERS: PCP Family Medicine; Visit Provider Family Medicine
DX: Z12.31 Encounter for screening mammogram for malignant neoplasm of breast (principal)
CPT/HCPCS: 77063; 77067

== ENCOUNTER 2020-06-03 12:39 | Outpatient (REF) | payer MEDICARE, BC, SELFPAY ==
[2020-06-03 19:21] LABS: TROPONIN-I 8.8 ug/mL (4.0-12.0)
== END 2020-06-03 12:59 ==
LOC: NCHCN 12:39
PROVIDERS: PCP Family Medicine; Visit Provider Family Medicine
DX: Z51.81 Encounter for therapeutic drug level monitoring (principal)
CPT/HCPCS: 80156

== ENCOUNTER 2020-07-04 00:52 | Outpatient (CLI) | payer MEDICARE, BC, SELFPAY ==
--- NOTE | 2020-07-04 07:45 | DI.US_ITS ---
EXAM: US PELVIS TRANSVAGINAL CLINICAL HISTORY: postmenopausal bleeding in pt who wears pessary,N95,0 TECHNIQUE: Ultrasound performed using standard protocol. COMPARISON: US US breast RT limited from 06/10/2018 FINDINGS: Pelvic ultrasound was performed transabdominally and transvaginally. Uterus measures 6.4 x 3.2 x 3.1 cm in diameter. Myometrium is grossly unremarkable. The endometrial stripe is thickened at about 7 millimeters and shows very abnormal heterogeneous appearance with mul tiple cystic areas. The endometrium is avascular these findings are abnormal in a postmenopausal pat ient and tissue sampling is recommended to rule neoplasm. Right ovary is presumptively visualized and measures 12 x 8 x 8 millimeters. Left ovary nonvisualize d. No free fluid in the pelvis. Limited scanning of kidneys is unremarkable. IMPRESSION: Thickened heterogeneous endometrial stripe in a postmenopausal patient tissue sampling recommended to exclude neoplastic disease. DATA REPOSITORY:
== END 2020-07-04 01:12 ==
PROVIDERS: PCP Family Medicine; Visit Provider Obstetrics & Gynecology Gynecology
DX: N95.0 Postmenopausal bleeding (principal); R93.89 Abnormal findings on diagnostic imaging of other specified body structures
CPT/HCPCS: 76830; 76856

== ENCOUNTER 2020-07-04 14:48 | Outpatient (REF) | payer MEDICARE, BC, SELFPAY ==
--- NOTE | 2020-07-04 14:00 | ENDO_PTH ---
PATIENT: Iona Carvalho LOC: [facility]#:[id number] AGE/SX: 80/F ROOM: RE07/04/[address]: Sahra Garcia : 1940 BED: DIS: 07/04/2020 SPEC #: [id number] RECD: 07/04/20 15:19 STATUS: MIRYAM REQ #: [id number] [place]: 07/04/20 14:[address]: Sahra Garcia DEPT: Surgical Specimen RECD BY: Cyndee Olivarez ENTERED: 07/04/20 15:20 SP TYPE: Endo OTHR DR: Magdalena Pritchett V Tissues: 1 - ENDOCERVICAL BX/CURRETTE Procedures: GROSS AND MICRO LEVEL 4 Comments: [id number]
== END 2020-07-04 15:08 ==
LOC: LBN 14:48
PROVIDERS: PCP Family Medicine; Visit Provider Obstetrics & Gynecology Gynecology
DX: N95.0 Postmenopausal bleeding (principal)
CPT/HCPCS: 88305

== ENCOUNTER → 2020-09-01 13:29 | Outpatient (BNVA) | payer MEDICARE, BC, SELFPAY | PROVIDERS: PCP Family Medicine; Referring Provider Family Medicine; Visit Provider Physical Therapy Assistant | DX: Z12.11 Encounter for screening for malignant neoplasm of colon (principal); Z80.0 Family history of malignant neoplasm of digestive organs ==

== ENCOUNTER 2020-09-09 04:06 | Outpatient (CLI) | payer MEDICARE, BC, SELFPAY ==
[2020-09-10 16:40] LABS: COVID-19 RT-PCR Result NEGATIVE (Negative)
== END 2020-09-09 04:26 ==
PROVIDERS: PCP Family Medicine; Visit Provider Surgery
DX: Z11.52 Encounter for screening for COVID-19 (principal); Z01.818 Encounter for other preprocedural examination
CPT/HCPCS: U0003

== ENCOUNTER 2020-09-14 08:29 | Day surgery (SDC) | payer MEDICARE, BC, SELFPAY ==
--- NOTE | 2020-09-14 06:52 | W.COLOREPORT ---
Date of service: 09/14/20 Time of Service: 09:38 Colonoscopy Report Date of procedure: 09/14/20 Pre-op diagnosis general: Family history of colon cancer Post-op diagnosis procedure note: same (polyps) Procedure: Colonoscopy with polypectomy Surgeon: Sangita Camiol Anesthesia proc note operative: other (General/ASA 2/Shahzad Green CRNA) Estimated blood loss (mL): 3 Pathology: other (5 small rectal polyps) Complications: None Disposition: same day Indications: The patient is here for Colonoscopy pre-op. Her last screening was in 2009, which was unremarkable. She reports a family history of colon cancer in her mother. She has no family history of colon cancer. She has not had any bowel habit changes. -Discussed colonoscopy bowel prep as well as the procedure. Discussed possible complications of the procedure to include bleeding, pain, perforation, missed small lesion/polyp, sore throat, aspiration and adverse reaction to the medications. Questions were answered to patient?s satisfaction. No guarantees were implied or given. Prep: Miralax/Dulcolax Procedure Start Time: Procedure End Time: 10:02 Retraction Time: 18 minutes Findings: 5 small benign appearing polyps at the rectosigmoid junction Procedure Description: After informed consent was obtained the patient was taken to the procedure room and placed in a left decubitous position. Monitors were applied and a time out was done. The patients name, date of , procedure, allergies to medications and metal in their body was reviewed. The patient was then sedated. Once sedated and comfortable a rectal exam was done. External exam was normal. Internal exam revealed a normal sphincter tone and no palpable masses. The scope was then introduced and retro-flexed. No internal hemorrhoids, polyps or masses were identified on retro-flexion. The scope was then advanced to the cecum without difficulty. The ileocecal valve and appendiceal orifice were identified. The prep was good. The scope was then slowly retracted over 18 minutes back into the rectum. Polyps were removed with cold forceps in the rectum at the rectosigmoid junction. There was mild rojas-diverticulosis noted. The scope was removed and the patient was woken up and taken back to Same day surgery in stable condition. The patient tolerated the procedure well and there were no immediate complications. Follow up: The patient should follow up as needed if they develop changes in bowel habits or other new gastrointestinal complaints.
--- NOTE | 2020-09-14 06:53 | W.PM.DSUDISC ---
Discharge Plan Disposition Patient Disposition: HOME Condition: Good Discharge Details Reason For Visit: Colonoscopy Attending Provider: Sangita Camilo Primary Care Provider: Magdalena Pritchett V Home Meds and New Rx's Prescriptions: Continued Glucosamine-Chondr (boswellia) 281-948-21-1-3 mg tablet 1 tab PO DAILY RF: 0 multivitamin [Daily Multi-Vitamin] 1 EACH tablet 1 ea PO DAILY RF: 0 Systane Balance 0.6 % drops 1 drp ophthalmic (eye) DAILY PRNRF: 0 cholecalciferol (vitamin D3) 50 mcg (2,000 unit) capsule 50 mcg PO DAILY RF: 0 calcium carbonate 500 MG tablet,chewable 500 mg PO DAILY RF: 0 carbamazepine [Tegretol XR] 100 mg Tablet Extended Release 12 Hr 100 mg PO . PRESCRIBED RF: 0 Discontinued polyethylene glycol 3350 17 gram/dose powder 238 g PO ONCE Qty: 238 RF: 0 bisacodyl [Dulcolax (bisacodyl)] 5 mg tablet,delayed release (DR/EC) 5 mg PO ONCE Qty: 4 RF: 0 cholecalciferol (vitamin D3) [Vitamin D3] 50 mcg (2,000 unit) Tablet 50 mcg PO DAILY RF: 0 Discharge Instructions Instructions: Colorectal Polyps (DC), Diverticulosis (DC) Additional Instructions: Findings: 5 small polyps, most likely benign Follow up: as needed Please call if you develop: fevers >101.5 Nausea or Vomiting Abdominal pain that is not transient DAY SURGERY UNIT POST ENDOSCOPY INSTRUCTIONS 1. Because there will be medication in your system for the next 24 hours, you may feel a little sleepy. Your coordination will be affected. Therefore: a. Do not drive or operate dangerous equipment for 24 hours. b. Do not drink alcohol beverages for 24 hours (not even beer). c. Plan to go home and rest for the day. 2. Generally there are no restrictions on your activity after a day or so has gone by, but you may feel a bit fatigued for a few days. 3 After you arrive home you may have a light meal and return to a normal diet as you can tolerate it without feeling sick to your stomach. 4. After surgery, you may feel pain or discomfort. This should be only transient, but if it persists please contact your doctor. 5. If there are any questions regarding the findings of your procedure, please feel free to contact your doctor. 6. If you are unable to contact your doctor with a problem, contact the hospital at [phone]. 7. Continue all your regular medications unless directed otherwise. I understand the above instructions and have no questions. Signature of Patient or Responsible Adult Escort Date/Time Name of Responsible Adult Escort Signature of Nurse Date/Time Activity:: Activity as Tolerated Diet:: high fiber diet Discharge Orders Discharge Orders: Discharge Order (Routine); Ordered 09/14/20 Ordered By: Sangita Camilo
[2020-09-14 08:44] VITALS: BP 139/83; PULSE 84; RESP 18; TEMP 36.3; O2SAT 99
[2020-09-14] MEDS: Lactated Ringers 1,000 ML 80 ML IV (09:19)
[2020-09-14 10:40] VITALS: BP 107/71; PULSE 67; RESP 16; TEMP 36.2; O2SAT 98
--- NOTE | 2020-09-14 10:56 | BOWEL_PTH ---
PATIENT: Iona Carvalho LOC: [facility] U#:[id number] AGE/SX: 80/F ROOM: RE09/14/[address]: Sangita Camilo MD : [id number] BED: DIS: 09/14/2020 SPEC #: [id number] RECD: 09/14/20 12:52 STATUS: MIRYAM REQ #: [id number] [place]: 09/14/20 10:[address]: Sangita Camilo DEPT: Surgical Specimen RECD BY: Shae Law ENTERED: 09/14/20 12:53 SP TYPE: Bowel OTHR DR: Magdalena Pritchett V Tissues: 1 - BIOPSY BOWEL Procedures: GROSS AND MICRO LEVEL 4 Comments: [id number]
== END 2020-09-14 10:52 | disposition home or self-care (01) ==
LOC: SUR 08:29
PROVIDERS: PCP Family Medicine; Visit Provider Surgery
PROC: 0DJD8ZZ Inspection of Lower Intestinal Tract, Via Natural or Artificial Opening Endoscopic (ICD-10-PCS; CPT 45378; principal; 2020-09-14 10:00)
DX: Z12.11 Encounter for screening for malignant neoplasm of colon (principal); Z80.0 Family history of malignant neoplasm of digestive organs; K57.30 Diverticulosis of large intestine without perforation or abscess without bleeding; K62.1 Rectal polyp
CPT/HCPCS: 45380; 88305

== ENCOUNTER 2021-12-13 12:55 | Emergency (ER) | payer MEDICARE, SELFPAY ==
[2021-12-13 13:15] VITALS: BP 144/85; PULSE 81; RESP 16; TEMP 36.2; O2SAT 98
--- NOTE | 2021-12-13 14:00 | DI.RAD_ITS ---
Exam(s) XR KNEE RT 4V AP,LAT,ZACHERY,PAT EXAM: XR KNEE RT 4V AP,LAT,ZACHERY,PAT CLINICAL HISTORY: fall TECHNIQUE: COMPARISON: No exams were available for comparison FINDINGS: Four views were obtained. There are severe degenerative changes of the medial tibiofemoral joint wit h marked loss of the cartilaginous joint space. There is an apparent mildly displaced fracture of the patella, probably with mild comminution. There is a large suprapatellar joint effusion. No additional fracture seen. IMPRESSION: RADIATION DOSE DELIVERED: Total DLP
--- NOTE | 2021-12-13 14:02 | W.ED.GENAD ---
Discharge Plan Disposition Patient Disposition: HOME Condition: Good Discharge Details Clinical Impression: Patella fracture Primary Care Provider: Magdalena Pritchett V ED Provider: Elliot Jamison Home Meds and New Rx's Prescriptions: No Action calcium carbonate 500 MG tablet,chewable 500 mg PO DAILY 0RF carbamazepine [Tegretol XR] 100 mg Tablet Extended Release 12 Hr 200 mg PO BID 0RF Label Comments: 11/25/18 PT states 2 tabs BID, and 1 tab at noon. PG carbamazepine 100 mg tablet,chewable 100 mg PO .NOON 0RF Label Comments: CHEW AND SWALLOW 2 TABLETS BY MOUTH EVERY MORNING 1 TABLET AT NOON AND 2 TABLETS AT BEDTIME Discharge Instructions Instructions: Swollen Knee Joint (ED) Additional Instructions: Immobilizer at all times when up and about until you are seen by orthopedics Apply ice to the affected area 20 minutes every hour while awake Referral to orthopedics was placed for your behalf, expect a call from the office to schedule follow use the walker at all times tylenol or motrin for the pain HPI General Date/Time Provider Initiated Documentation: 12/13/21 14:02. HPI Narrative: Patient fell onto her right knee while walking. Believe that she tripped. She was holding her grandson's hand. Injury to the right heel. Positive swelling. Pain worse with movement. Moderate to severe pain. Related Data Home Medications Medication Instructions Recorded Confirmed calcium carbonate 200 mg calcium 500 mg PO DAILY 12/06/12 12/13/21 (500 mg) chewable tablet carbamazepine 100 mg 200 mg PO BID 11/25/18 12/13/21 tablet,extended release,12 hr (Tegretol XR) carbamazepine 100 mg chewable 100 mg PO .NOON 12/13/21 12/13/21 tablet Allergies Allergy/AdvReac Type Severity Reaction Status Date / Time Penicillins Allergy Skin Rash Verified 12/13/21 13:19 General Stated Complaint: Orthopedic JAMIN: 4 Review of Systems Narrative: Constitutional negative for fever or chills. He ENT negative. Cardiovascular negative respiratory negative. GI negative negative skin see HPI. Skin abrasions to the right knee. Neuro PFSH All Active Problems Status post cataract extraction and insertion of intraocular lens of left eye (Chronic 11/28/18) Family history of colon cancer (Acute) Post-menopausal bleeding (Acute) History of fall (Acute) Memory deficit (Acute) Restless leg syndrome (Acute) Osteoporosis (Chronic) Skin lesion (Acute) Trigeminal neuralgia (Acute) Rx with Carbamazepine. Lung nodule (Acute) Urethral caruncle (Acute) 06/2020. Most likely etiology of postmenopausal bleeding - Patella fracture (Acute) History of endometrial biopsy (Acute) 06/2020: Result-atrophic cystic changes. No dysplasia. 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 Pt removes and cleans it on reg basis. Status post cataract extraction and insertion of intraocular lens of right eye (Chronic 01/05/19) Medical History (Updated 12/13/21 @ 15:09 by Elliot Jamison MD) GERD HEART PALPITATIONS History of cardiac murmur It was something that was dx when I was a sophmore in highschool, but nobody has heard it, and I've never had an incident. History of malignant melanoma Hx of fracture of wrist Right closed reduction Hypercholesterolemia Meniere's disease MRSA Osteopenia Uterine prolapse (05/15/13) Surgical History Cholecystectomy COLONOSCOPY LYMPH NODE REMOVAL R Arm, Axilla - Pt states no BP or IV's to R arm Skin Cancer Removal Family History Mother Personal history of malignant neoplasm COLON Father Dementia Brother No problems noted. Social History Smoking/Tobacco Use Status: Former Tobacco Use Quit Date: 08/26/07 Smoking risk assessment performed?: Yes Alcohol Intake: current Alcohol Intake frequency: 0-2 drinks per day Alcohol type: wine Drug use: Never Substance use type: does not use Household members: spouse Housing: house current occupation: Retired. Do you feel safe at home: Yes Do you feel safe in your relationship?: Yes History History 3 Para 3 Hx # Term Pregnancies 3 Multiple births Hx # Pregnancies Ectopic pregnancies AB induced Hx Number of Living Children AB spontaneous Exam Narrative Exam Narrative: Awake alert Gravity x3. Calm no acute distress HEENT negative Pulmonary normal work of breathing Cardiac cap refill Right knee. Significant effusion. Limited range of motion secondary to effusion. Positive pain Course xrays reviewed with Dr Bennum- positive patella Fx, plan - walker /knee immobilizer and ortho follow up Vital Signs Vital signs: Vital Signs Temperature 36.2 C L 12/13/21 13:15 Pulse 81 12/13/21 13:15 Respiratory Rate 16 12/13/21 13:15 Blood Pressure 144/85 H 12/13/21 13:15 Pulse Oximetry 98 12/13/21 13:15 Temperature 36.2 C L 12/13/21 13:15 Temperature Source Temporal Artery Scan 12/13/21 13:15 Pulse 81 12/13/21 13:15 Respiratory Rate 16 12/13/21 13:15 Respiratory Effort 12/13/21 13:15 Blood Pressure 144/85 H 12/13/21 13:15 Blood Pressure Position Supine 12/13/21 13:15 Pulse Oximetry 98 12/13/21 13:15 Oxygen Delivery Method Room Air 12/13/21 13:15 Oxygen Flow Rate 0 12/13/21 13:15 Pain Level 10 12/13/21 13:15
[2021-12-13 15:38] VITALS: BP 138/82; PULSE 70; RESP 16; TEMP 36.8; O2SAT 99
== END 2021-12-13 15:35 | disposition home or self-care (01) ==
PROVIDERS: Emergency Provider Emergency Medicine; PCP Family Medicine
DX: S82.091A Other fracture of right patella, initial encounter for closed fracture (principal); W18.39XA Other fall on same level, initial encounter
CPT/HCPCS: 99283; 73564

== ENCOUNTER 2021-12-20 13:31 | Outpatient (CLI) | payer MEDICARE, SELFPAY ==
--- NOTE | 2021-12-20 11:15 | DI.RAD_ITS ---
Exam(s) XR KNEE RT 2V AP,LAT EXAM: XR KNEE RT 2V AP,LAT INDICATION: R PATELLA FRACTURE. COMPARISON: CR XR KNEE RT 4V AP,LAT,ZACHERY,PAT from 12/13/2021 TECHNIQUE: 2D digital imaging was performed. Two views. FINDINGS: There has been no change in alignment of the patellar fracture, without significant separation of fra gments. Decreased joint effusion. Degenerative changes greatest of the medial femoral tibial joint DATA REPOSITORY: RADIATION DOSE DELIVERED:
== END 2021-12-20 13:32 | disposition home or self-care (01) ==
PROVIDERS: PCP Family Medicine; Referring Provider Family Medicine; Visit Provider Physician Assistant
DX: S82.001A Unspecified fracture of right patella, initial encounter for closed fracture (principal); X58.XXXA Exposure to other specified factors, initial encounter
CPT/HCPCS: 99214; 73560

== ENCOUNTER 2021-12-27 11:31 | Outpatient (CLI) | payer MEDICARE, SELFPAY ==
--- NOTE | 2021-12-27 11:15 | DI.RAD_ITS ---
Exam(s) XR KNEE RT 2V AP,LAT EXAM: XR KNEE RT 2V AP,LAT INDICATION: follow up fracture. COMPARISON: CR XR KNEE RT 2V AP,LAT from 12/20/2021 TECHNIQUE: 2D digital imaging was performed. Two views. FINDINGS: There has been no change in alignment of the patellar fracture. There the joint effusion has decreas ed in size. Severe degenerative changes are again noted in the medial femoral tibial joint. DATA REPOSITORY: RADIATION DOSE DELIVERED:
== END 2021-12-27 11:32 | disposition home or self-care (01) ==
LOC: DIORS 11:31
PROVIDERS: PCP Family Medicine; Referring Provider Family Medicine; Visit Provider Physician Assistant
DX: S82.091D Other fracture of right patella, subsequent encounter for closed fracture with routine healing (principal); X58.XXXD Exposure to other specified factors, subsequent encounter; M17.11 Unilateral primary osteoarthritis, right knee
CPT/HCPCS: 99213; 73560

== ENCOUNTER 2022-02-02 12:01 | Outpatient (CLI) | payer MEDICARE, SELFPAY ==
--- NOTE | 2022-02-02 11:45 | DI.RAD_ITS ---
Exam(s) XR KNEE RT 2V AP,LAT EXAM: XR KNEE RT 2V AP,LAT CLINICAL HISTORY: f/u R PATELLA FRACTURE. TECHNIQUE: 2D digital imaging was performed of the right knee. Two views obtained. AP and latter v iews were obtained. COMPARISON: CR XR KNEE RT 2V AP,LAT from 12/27/2021 FINDINGS: BONES: There has been no change in alignment of the patellar fracture. No new fractures identified. No bony destructive lesion is seen. JOINTS: The knee is normally aligned. There is a small joint effusion. Stable degenerative changes a re seen in the knee. SOFT TISSUE: Normal. IMPRESSION: Stable patellar fracture. DATA REPOSITORY: RADIATION DOSE DELIVERED:
== END 2022-02-02 12:02 | disposition home or self-care (01) ==
LOC: DIORS 12:01
PROVIDERS: PCP Family Medicine; Referring Provider Family Medicine; Visit Provider Student in an Organized Health Care Education/Training Program
DX: M25.461 Effusion, right knee; S82.091D Other fracture of right patella, subsequent encounter for closed fracture with routine healing; X58.XXXD Exposure to other specified factors, subsequent encounter
CPT/HCPCS: 99213; 73560

== ENCOUNTER 2022-03-15 11:45 | Outpatient (CLI) | payer MEDICARE, SELFPAY ==
--- NOTE | 2022-03-15 11:00 | DI.RAD_ITS ---
Exam(s) XR KNEE RT 2V AP,LAT EXAM: XR KNEE RT 2V AP,LAT CLINICAL HISTORY: RIGHT PATELLA FRACTURE. TECHNIQUE: 2D digital imaging was performed. COMPARISON: CR XR KNEE RT 2V AP,LAT from 02/02/2022 FINDINGS: Two views Again noted is advanced narrowing of the medial compartment and degenerative subarticular cyst in the outer aspect of the medial femoral condyle articular surface. Lateral compartment exhibits normal h eight. Patellofemoral compartment degenerative changes. Small amount of increased joint fluid IMPRESSION: Advanced degenerative changes again noted. DATA REPOSITORY: RADIATION DOSE DELIVERED:
== END 2022-03-15 11:46 | disposition home or self-care (01) ==
LOC: DIORS 11:45
PROVIDERS: PCP Family Medicine; Referring Provider Family Medicine; Visit Provider Student in an Organized Health Care Education/Training Program
DX: S82.001D Unspecified fracture of right patella, subsequent encounter for closed fracture with routine healing (principal); X58.XXXD Exposure to other specified factors, subsequent encounter
CPT/HCPCS: 99213; 73560

== ENCOUNTER 2022-08-14 18:09 | Outpatient (REF) | payer MEDICARE, SELFPAY ==
[2022-08-14 16:41] LABS: ALT 22 U/L (14-59); AST 26 U/L (15-37); Albumin 4.1 g/dL (3.4-5.0); Alkaline Phosphatase 89 U/L (46-116); Anion Gap 6.4 mmol/L (3-11); BUN 14 mg/dL (7-18); Bilirubin, Total 0.3 mg/dL (0.2-1.0); CO2 30.6 mmol/L (21.0-32.0); CREATININE 0.9 mg/dL (0.55-1.02); Calcium 8.8 mg/dL (8.5-10.1); Calculated LDL 155 mg/dL (<100); Chloride 102 mmol/L (98-107); Cholesterol 232 mg/dL (<200); Estimated GFR 63.83 (mL/min/1.73m2); Glucose 105 mg/dL (74-106); HDL Cholesterol 67 mg/dL (40-60); Potassium 4.3 mmol/L (3.5-5.1); Sodium 139 mmol/L (136-145); Total Protein 6.9 g/dL (6.4-8.2); Triglyceride 50 mg/dL (<150)
== END 2022-08-14 18:10 | disposition home or self-care (01) ==
LOC: NCHCN 18:09
PROVIDERS: PCP Family Medicine; Visit Provider Family Medicine
DX: Z79.899 Other long term (current) drug therapy (principal); G50.0 Trigeminal neuralgia
CPT/HCPCS: 80053; 80061

== ENCOUNTER 2022-09-03 02:38 | Outpatient (CLI) | payer MEDICARE, SELFPAY ==
--- NOTE | 2022-09-03 | DI.US_ITS ---
Exam(s) US BREAST LT COMPLETE MG MAMMO DIAGNOSTIC BI EXAM: MG MAMMO DIAGNOSTIC BI CLINICAL HISTORY: LT BREAST LUMP N63.24 LUMP OR MASS N63.0. COMPARISON: 2013 through 2019 TECHNIQUE: Craniocaudal and mediolateral oblique Full Field Digital Mammography views of both breast s with Computer Aided Diagnosis followed by Tomosynthesis and left breast ultrasound. FINDINGS: Mammography/Tomosynthesis: Masses/Architectural Distortion: None seen. Microcalcifications: No suspicious pleomorphic-type are seen. Skin Thickening/Nipple Retraction: None. Left breast US: Echotexture: Normal appearance of the glandular tissue. Shadowing: No suspicious foci. Cyst: None. Solid lesions: None seen. Ductal dilation: None. IMPRESSION: 1. No evidence of malignancy is noted. 2. Unless there is more urgent need, follow-up screening mammography is recommended, as per [place] [employer] guidelines. BI-RADS Category 1 - Negative Breast Density - Category C - Heterogeneously dense Breast density category C or D implies that the patient has dense breast tissue. Dense breast tissue is very common and is not abnormal but dense breast tissue can make it harder to find cancer on a ma mmogram. Also, dense breast tissue may increase their breast cancer risk. This information about the result of the mammogram report was provided to the patient to raise their awareness. Use this report when you speak with the patient about their risks for breast cancer, which includes their family hist ory. At that time, you may recommend for more screening tests (Ultrasound or MRI) as they might be us eful based on their risk. A negative radiographic report should not delay biopsy if a dominant or clinically suspicious mass is present. Up to ten percent of cancers are not identified on mammography. A negative report may reinforce clinical impression. Adenosis and dense breasts may obscure an underlying neoplasm. False positive reports average 6 to 10%. Patient will receive a letter notifying them of these results.
== END 2022-09-03 02:58 ==
LOC: DI 02:38
PROVIDERS: PCP Family Medicine; Visit Provider Family Medicine
DX: R92.8 Other abnormal and inconclusive findings on diagnostic imaging of breast (principal)
CPT/HCPCS: 76642; 77062; 77066; G0279

== ENCOUNTER 2023-02-12 10:16 | Emergency (ER) | payer MEDICARE, SELFPAY ==
[2023-02-12 10:20] VITALS: BP 129/77; PULSE 73; RESP 16; TEMP 36.6; O2SAT 97
--- NOTE | 2023-02-12 10:45 | DI.RAD_ITS ---
Exam(s) XR PELVIS W OBLIQUES 3V XR HIP LT AP LAT ONLY CLINICAL HISTORY: Left hip pain. TECHNIQUE: 2D digital imaging was performed of the left hip. Five views were obtained. AP pelvis, oblique and lateral left hip views were obtained. COMPARISON: CR LEFT HIP COMPLETE from 09/01/2010 CR ABDOMEN 2 VIEW FLAT, UPRIGHT from 12/06/2012 CR XR DEXA BONE DENSITY W/WO CHLOE from 06/04/2019 CR XR HIP LT AP LAT ONLY from 02/12/2023 FINDINGS: BONES: There is a cortical deformity of the inferior left pubic ramus. No bony destructive lesion is seen. JOINTS: No dislocation present. The sacroiliac joints are well maintained. There is mild narrowing o f the hip joints bilaterally. The symphysis pubis is unremarkable. SOFT TISSUE: Normal. IMPRESSION: 1. Deformity of the left inferior pubic ramus suspicious for fracture. Please correlate with patient 's clinical history. A CT scan of the pelvis may be obtained for further evaluation. 2. Degenerative changes of the hips bilaterally. DATA REPOSITORY: RADIATION DOSE DELIVERED:
--- NOTE | 2023-02-12 11:00 | W.ED.GENAD ---
Discharge Plan Disposition Patient Disposition: Home Discharge Details Clinical Impression: Closed fracture of left inferior pubic ramus, Closed fracture of superior ramus of left pubis, Closed fracture of sacrum Primary Care Provider: Magdalena Pritchett V ED Provider: Patrice Little Home Meds and New Rx's Prescriptions: Continued calcium carbonate 200 mg calcium (500 mg) tablet,chewable 500 mg PO DAILY PRN carbamazepine [Tegretol XR] 100 mg Tablet Extended Release 12 Hr 200 mg PO BID Patient Comments: 11/25/18 PT states 2 tabs BID, and 1 tab at noon. PG carbamazepine 100 mg tablet,chewable 100 mg PO .NOON Patient Comments: CHEW AND SWALLOW 2 TABLETS BY MOUTH EVERY MORNING 1 TABLET AT NOON AND 2 TABLETS AT BEDTIME Discharge Instructions Additional Instructions: Please read all of the information that accompanies these instructions. You were seen in the emergency department for your hip pain. You were found to have fractures of your left pubic bone. The inferior and superior pubic rami. You were also found to have a left sacral alar fracture. Orthopedics was consulted and they advised that you could bear weight as tolerated. If you have worsening pain please return to the emergency department. For your pain please take medications as follows: 1. Take acetaminophen (Tylenol), 1,000 mg (two 500 mg tabs) every 6 hours 2. Take ibuprofen (Advil), 200 mg every 8 hours. Please follow-up with orthopedic team in the next week. A referral for home health has been placed for you by physical therapy. Discharge Data Discharge Date/Time-TO BE ENTERED AT DEPARTURE: 02/12/23 15:01 Medical Decision Making This is an overall very well-appearing normothermic and not tachycardic 82-year-old female with left hip pain 10 days status post fall concerning for fracture. Her x-ray was read as concerning for inferior pubic ramus fracture for which radiology advised CT scan. We do not orthopedics on-call f CT scan shows a fracture well with consult orthopedics at [facility]. No pain out of proportion to suggest necrotizing soft tissue infection. Will defer basic labs at this point. Left foot warm and well-perfused so not concern for vascular insult. 2:09 PM Patient had an abnormal CT scan showing left pubic bone superior and inferior pubic rami fracture and a left sacral alar fracture. We will have physical therapy evaluate the patient for need for hospitalization. 2:50 PM Patient ambulated well with PT. SHE USED A WALKER. SHE REPORTS HAVING A WALKER AT HOME. PT will help organize home physical therapy. Patient felt comfortable with plan to be discharged. Have asked health aboriginal community council member Estee to have the patient seen by orthopedic team in the next week. She has normal renal function and we will include low-dose ibuprofen in addition to acetaminophen for analgesia. I have given her return indications including any recurrent falls or worsening pain. 3:55 PM With continuous pillowcase cutter Jackie Summers signed paperwork to have home physical therapy see the patient. HPI General Date/Time Provider Initiated Documentation: 02/12/23 10:59. HPI Narrative: This is an 82-year-old female arriving via private vehicle following a fall. Patient reports that approximately 10 days ago she was standing up on a third step when she attempted to step down. She missed the step. This caused her to fall and landed on her left hip. She did not strike her head. She denies preceding chest pain nausea vomiting dysuria and frequency. No headaches. She has been taking acetaminophen at home for pain. She tried calling orthopedics for follow-up but could not get in for an appointment until February. She has subsequently had pain when ambulating. Related Data Home Medications Medication Instructions Recorded Confirmed carbamazepine 100 mg 200 mg PO BID 11/25/18 02/12/23 tablet,extended release,12 hr (Tegretol XR) carbamazepine 100 mg chewable 100 mg PO .NOON 12/13/21 02/12/23 tablet calcium carbonate 200 mg calcium 500 mg PO DAILY PRN 12/20/21 02/12/23 (500 mg) chewable tablet Allergies Allergy/AdvReac Type Severity Reaction Status Date / Time Penicillins Allergy Skin Rash Verified 02/12/23 10:24 General Stated Complaint: Orthopedic JAMIN: 4 PFSH All Active Problems Closed fracture of left inferior pubic ramus (Acute) Closed fracture of superior ramus of left pubis (Acute) Closed fracture of sacrum (Acute) Right patella fracture (Acute 12/13/21) Status post cataract extraction and insertion of intraocular lens of left eye (Chronic 11/28/18) Family history of colon cancer (Acute) Post-menopausal bleeding (Acute) History of fall (Acute) Memory deficit (Acute) Restless leg syndrome (Acute) Osteoporosis (Chronic) Skin lesion (Acute) Trigeminal neuralgia (Acute) Rx with Carbamazepine. Lung nodule (Acute) Urethral caruncle (Acute) 06/2020. Most likely etiology of postmenopausal bleeding - History of endometrial biopsy (Acute) 06/2020: Result-atrophic cystic changes. No dysplasia. 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 Pt removes and cleans it on reg basis. Status post cataract extraction and insertion of intraocular lens of right eye (Chronic 01/05/19) Medical History (Updated 02/12/23 @ 14:54 by Patrice Little MD) GERD HEART PALPITATIONS History of cardiac murmur It was something that was dx when I was a sophmore in highschool, but nobody has heard it, and I've never had an incident. History of malignant melanoma Hx of fracture of wrist Right closed reduction Hypercholesterolemia Meniere's disease MRSA Osteopenia Uterine prolapse (05/15/13) Surgical History Cholecystectomy COLONOSCOPY LYMPH NODE REMOVAL R Arm, Axilla - Pt states no BP or IV's to R arm Skin Cancer Removal Family History Mother Personal history of malignant neoplasm COLON Father Dementia Brother No problems noted. Social History Smoking/Tobacco Use Status: Former Tobacco Use Quit Date: 08/26/01 Smoking risk assessment performed?: Yes Alcohol Intake: current Alcohol Intake frequency: a few times a week Alcohol type: wine Drug use: Never Substance use type: does not use Household members: spouse Housing: house current occupation: Retired. Current gender identity: female Do you feel safe at home: Yes Do you feel safe in your relationship?: Yes History History 3 Para 3 Hx # Term Pregnancies 3 Multiple births Hx # Pregnancies Ectopic pregnancies AB induced Hx Number of Living Children AB spontaneous Exam Narrative Exam Narrative: General: Well-appearing in no acute distress speaking in complete sentences. Head: Normocephalic, atraumatic. Eye: Pupils equal, round reactive to light. Extraocular eye movements intact. No conjunctival injection. No scleral icterus. Ear, nose, mouth, throat: Grossly normal inspection. Normal voice, handling secretions normally. Neck: Trachea midline. Cardiovascular: Well-perfused distal extremities. Respiratory: Nonlabored respiration. Gastrointestinal: Nondistended abdomen. Musculoskeletal: Patient has tenderness overlying her left buttock. No laceration. No abrasions. Patient is able to straight leg raise. She has minimal pain in her left hip on passive flexion and extension at the hip. Left foot warm well perfused with 2+ PT and DP pulses. Patient is able to dorsi and plantarflex well left with 5 out of 5 strength. She has a superficial abrasion underneath a Band-Aid on her left knee. Skin: Normal for age and race, grossly normal temperature and turgor. No acute rash. Neurologic: Alert and appropriate, no apparent acute deficits. Psychiatric: Mood and manner are appropriate. Grooming and personal hygiene are appropriate. Course Vital Signs Vital signs: Vital Signs Temperature 36.6 C 02/12/23 10:20 Pulse 73 02/12/23 10:20 Respiratory Rate 16 02/12/23 10:20 Blood Pressure 129/77 02/12/23 10:20 Pulse Oximetry 97 02/12/23 10:20 Temperature 36.6 C 02/12/23 10:20 Temperature Source Skin 02/12/23 10:20 Pulse 73 02/12/23 10:20 Respiratory Rate 16 02/12/23 10:20 Blood Pressure 129/77 02/12/23 10:20 Blood Pressure Position Sitting 02/12/23 10:20 Pulse Oximetry 97 02/12/23 10:20 Oxygen Delivery Method Room Air 02/12/23 10:20 Oxygen Flow Rate 0 02/12/23 10:20 Pain Level 8 02/12/23 10:20
--- NOTE | 2023-02-12 12:27 | DI.CT_ITS ---
Exam(s) CT PELVIC WO EXAM: CT PELVIC WO CLINICAL HISTORY: Concern for left inferior pubic ramus. TECHNIQUE: Imaging Protocol: Axial computed tomography images with coronal and sagittal reformatted images were created and reviewed. COMPARISON: CR XR HIP LT AP LAT ONLY from 02/12/2023 CR XR PELVIS W OBLIQUES 3V from 02/12/2023 FINDINGS: Bones: There is an acute minimally displaced fracture involving the left pubic bone just lateral to the symphysis pubis. It extends into the symphysis pubis superiorly. There is also an acute fractur e seen at the junction of the anterior left acetabulum and the superior pubic ramus. There is a mild ly displaced inferior pubic ramus fracture. There is also disruption of the anterior cortex of the l eft sacral ala consistent with a fracture. There is no involvement of the left sacroiliac joint. No cellulitic or osteomyelitic changes are identified. There are degenerative changes seen in the lowe r lumbar spine and the left hip. No lytic or sclerotic lesions are identified. Soft Tissues: Diverticulosis is seen in the sigmoid colon. A normal appendix is visualized. There i s atherosclerosis present. There is a fat containing small umbilical hernia. There is a 2 mm nonobs tructing stone in the lower pole of the left kidney. IMPRESSION: 1. Fractures involving the left pubic bone, including the superior and inferior pubic rami, and the l eft sacral ala. Please see the above discussion for complete details. 2. Findings were discussed with the emergency department on 02/12/2023. RADIATION DOSE DELIVERED: 410.69mGy.cm Total DLP 410.69mGy.cmTotal DLP DATA REPOSITORY: All CT scans at this facility are submitted to the National Radiology Data Registry (NRDR) Dose Index Registry (DIR) with the [employer] (A[employer]). RADIATION OPTIMIZATION: All CT scans at this facility use at least one of these dose optimization te chniques: automated exposure control; mA and/or kV adjustment per patient size (includes targeted exa ms where dose is matched to clinical indication); or iterative reconstruction.
[2023-02-12] MEDS: Lidocaine 5% Patch 1 PATCH TP (13:15)
[2023-02-12 13:41] VITALS: BP 111/74; PULSE 69; RESP 18; TEMP 36.3; O2SAT 96
--- NOTE | 2023-02-12 14:37 | NUR.NOTE ---
Nursing Note: Pt ambulating with PT using walker. Pain improves with walking. Pt and pt's visitor understand next steps.
--- NOTE | 2023-02-12 14:52 | IN_ITS ---
Date of service: 02/12/23 Time of Service: 14:52 PT Notes Physical Therapy Emergency Department Initial Evaluation Date: 02/12/2023 Referring Doctor: Patrice Little MD PT Orders: PT CONSULT: Please evaluate ability to ambulate with a walker and left sacral fracture Precautions: Fall. Standard. Weightbearing as tolerated on the left LE. Patient Profile/Admitting Diagnosis: Vani is an 82-year-old female who sustained a left inferior and superior pubic rami as well as a left sacral ala fractures from a mechanical fall 10 days ago. Referral for PT was sent to determine ability to ambulate and for discharge recommendations. PMHX: All Active Problems? Right patella fracture (Acute 12/13/21) Status post cataract extraction and insertion of intraocular lens of left eye (Chronic 11/28/18) Family history of colon cancer (Acute) Post-menopausal bleeding (Acute) History of fall (Acute) Memory deficit (Acute) Restless leg syndrome (Acute) Osteoporosis (Chronic) Skin lesion (Acute) Trigeminal neuralgia (Acute) Rx with Carbamazepine.Lung nodule (Acute) Urethral caruncle (Acute) 06/2020. Most likely etiology of postmenopausal bleeding - History of endometrial biopsy (Acute) 06/2020: Result-atrophic cystic changes. No dysplasia. 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 Pt removes and cleans it on reg basis.Status post cataract extraction and insertion of intraocular lens of right eye (Chronic 01/05/19) Medical History?(Updated 01/13/22 @ 00:01 by LIUDMILA HAIR) GERD HEART PALPITATIONS History of cardiac murmur It was something that was dx when I was a sophmore in highschool, but nobody has heard it, and I've never had an incident. History of malignant melanoma Hx of fracture of wrist Right closed reductionHypercholesterolemia Meniere's disease MRSA Osteopenia Uterine prolapse (05/15/13) Surgical History? Cholecystectomy COLONOSCOPY LYMPH NODE REMOVAL R Arm, Axilla - Pt states no BP or IV's to R arm Skin Cancer Removal Social History/Home Situation: Lives with in a private home with 3 steps to enter. Independent with a ll aspects of ADLs prior to admission. Equipment Owned/DME: FWW, ilateral axillary crutches Subjective: Reports 3?4/10 pain on the side and back of her left hip aggravated by weight bearing, 1/10 at rest. Denies headache, chest pain, and lightheadedness throughout session. Objective: General Observation: Seated on wheelchair. Galdino present in room throughout evaluation. In NAD. Mental Status: Alert and oriented as to person, place, time, and purpose. Able to pay attention, focus, and respond appropriately. Pain: As above Vital Signs: Closely monitored by nursing staff ROM: Right Lower Extremity: Hip flexion WFL. Hip abduction WFL. Knee flexion WFL. Ankle dorsiflexion WFL. Ankle plantarflexion WFL. Left Lower Extremity: Hip flexion lacks the last 25% of available motion. Hip abduction lacks the last 25% of available motion. Knee flexion WFL. Ankle dorsiflexion WFL. Ankle plantarflexion WFL. Strength: Right Lower Extremity: Hip flexors 5/5. Hip abductors 4/5. Knee flexors 4/5. Knee extensors 4/5. Ankle dorsiflexors 4/5. Ankle plantarflexors 4/5. Left Lower Extremity: Hip flexors 3-/5. Hip abductors 3-/5. Knee flexors 4-/5. Knee extensors 4-/5. Ankle dorsiflexors 4/5. Ankle plantarflexors 4/5. Bed Mobility/Transfers: Sit to stand with supervision, cues provided for hand placement Stand to sit with supervision, cues provided for hand placement Gait: Instructed patient with level surface ambulation of 75 feet feet requiring stand by assist. Sep -to gait pattern. Missy decreased. Step height on L decreased. Step length on L decreased. Balance: Static Sitting: Normal Dynamic Sitting: Normal Static Standing: Fair Dynamic Standing: Fair Special Tests: Mobility Limitations Standardized Measure [facility] AM-PAC 6 clicks Basic Mobility Inpatient Short Form: Raw Score: 23 CMS Score: 11% deficit Informed Consent/Education: Patient and patient's were instructed in purpose of PT consult, appropriate/safe use of FWW for all transfers and ambulation. Agreeable to proceed with established PT POC to achieve personal goals. Assessment: Patient will require the use of a front wheel walker to offload pain on the left pelvic area with weight bearing, maximize independence, and reduce fall risk at home. Patient presents with clinical signs and symptoms consistent with current/admitting diagnoses that have resulted to mobility limitations, gait instability, generalized weakness, and overall ADL decline as demonstrated by the following impairment level findings: 1. Decreased strength to left pelvis/hip major muscle groups 2. Impaired standing balance 3. Impaired activity tolerance 4. Limitation of joint range of motion in left hip Impairments are contributing to the following functional limitations: 1. Difficulty with ambulation without assistive device 2. Increased completion time for mobility ADL performance 3. Increased risk for falls 4. Difficulty with managing steps alone safely Patient is assessed as a 29607 low complexity based on the following: History: 82-year-old female with past medical history as indicated above Examination: Demonstrable impairment in strength, balance, and mobility level with underlying impairments and functional limitations as exhibited above as well as deficit score of 11% utilizing the [facility] Mobility Inpatient Short Form Presentation: Evolving Decision Makin low complexity Goals: N/A. PT evaluation and functional mobility training only. Plan of Care/Treatment Plan: N/A. PT evaluation and functional mobility training only. DISCHARGE RECOMMENDATIONS: [] Home with no services [] [X] Home with services. Patient will benefit from home health PT services in order to progress mobility level using least restrictive assistive ambulatory device, assess home safety, identify additional equipment needs, and establish a functional maintenance program that will increase ability of patient to remain at home. [] Home with outpatient PT [] [] SNF for continued rehabilitation [] [] Disposal Worker Care [] [] SNF versus LTC based on ability to participate and progress [] TREATMENT CODE/TIME: 72165 x 26 minutes beginning at 14:23 PM. Thank you for the opportunity to participate in the care of this patient. Anita Taylor PT, DPT, CLT [facility] [place], [place]
--- NOTE | 2023-02-12 14:53 | NUR.NOTE ---
Nursing Note: referral faxed to ortho
--- NOTE | 2023-02-13 08:26 | OCONE_ITS ---
Date of service: 02/12/23 Time of Service: 14:30 Assessment and Plan Assessment and plan (1) Closed fracture of left inferior pubic ramus: Status: Acute Assessment and plan: Case discussed with emergency room provider. Imaging reviewed. Left LC-1 pelvic ring injury including high ramus, inferior ramus, and sacral ala fractures. Stable. Recommend progressive ambulation: Weightbearing as tole rated with assist device like walker. Physical therapy. DVT prophylaxis until mobile. Follow-up as outpatient in 2-3 weeks. (2) Closed fracture of superior ramus of left pubis: Status: Acute (3) Closed fracture of sacrum: Status: Acute PFSH All Active Problems Closed fracture of left inferior pubic ramus (Acute) Closed fracture of superior ramus of left pubis (Acute) Closed fracture of sacrum (Acute) Right patella fracture (Acute 12/13/21) Status post cataract extraction and insertion of intraocular lens of left eye (Chronic 11/28/18) Family history of colon cancer (Acute) Post-menopausal bleeding (Acute) History of fall (Acute) Memory deficit (Acute) Restless leg syndrome (Acute) Osteoporosis (Chronic) Skin lesion (Acute) Trigeminal neuralgia (Acute) Rx with Carbamazepine. Lung nodule (Acute) Urethral caruncle (Acute) 06/2020. Most likely etiology of postmenopausal bleeding - History of endometrial biopsy (Acute) 06/2020: Result-atrophic cystic changes. No dysplasia. 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 Pt removes and cleans it on reg basis. Status post cataract extraction and insertion of intraocular lens of right eye (Chronic 01/05/19) Medical History (Updated 02/12/23 @ 14:54 by Patrice Little MD) GERD HEART PALPITATIONS History of cardiac murmur It was something that was dx when I was a sophmore in highschool, but nobody has heard it, and I've never had an incident. History of malignant melanoma Hx of fracture of wrist Right closed reduction Hypercholesterolemia Meniere's disease MRSA Osteopenia Uterine prolapse (05/15/13) Surgical History Cholecystectomy COLONOSCOPY LYMPH NODE REMOVAL R Arm, Axilla - Pt states no BP or IV's to R arm Skin Cancer Removal Family History Mother Personal history of malignant neoplasm COLON Father Dementia Brother No problems noted. Social History Smoking/Tobacco Use Status: Former Tobacco Use Quit Date: 08/26/01 Smoking risk assessment performed?: Yes Alcohol Intake: current Alcohol Intake frequency: a few times a week Alcohol type: wine Drug use: Never Substance use type: does not use Household members: spouse Housing: house current occupation: Retired. Current gender identity: female Do you feel safe at home: Yes Do you feel safe in your relationship?: Yes History History 3 Para 3 Hx # Term Pregnancies 3 Multiple births Hx # Pregnancies Ectopic pregnancies AB induced Hx Number of Living Children AB spontaneous Results Last Vital Signs Temp 36.3 C L 02/12/23 13:41 Pulse 69 02/12/23 13:41 Resp 18 02/12/23 13:41 BP 111/74 02/12/23 13:41 Pulse Ox 96 02/12/23 13:41
== END 2023-02-12 15:01 | disposition home or self-care (01) ==
PROVIDERS: Emergency Provider Emergency Medicine; PCP Family Medicine
DX: S32.592A Other specified fracture of left pubis, initial encounter for closed fracture (principal); S32.512A Fracture of superior rim of left pubis, initial encounter for closed fracture; S32.10XA Unspecified fracture of sacrum, initial encounter for closed fracture; W19.XXXA Unspecified fall, initial encounter
CPT/HCPCS: 97161; 99284; 72190; 72192; 73502

== ENCOUNTER 2023-02-27 14:04 | Outpatient (CLI) | payer MEDICARE, SELFPAY ==
--- NOTE | 2023-02-27 13:30 | DI.RAD_ITS ---
Exam(s) XR PELVIS AP EXAM: XR PELVIS AP CLINICAL HISTORY: pelvis fx f/u. TECHNIQUE: 2D digital imaging was performed. AP view COMPARISON: CR XR PELVIS W OBLIQUES 3V from 02/12/2023 FINDINGS: There has been no change in the alignment of the left pubic ramus, ischial and acetabular fractures. Sacral fractures are faintly visualized on the right. No new abnormalities. DATA REPOSITORY: RADIATION DOSE DELIVERED:
== END 2023-02-27 14:05 | disposition home or self-care (01) ==
LOC: DIORS 14:04
PROVIDERS: PCP Family Medicine; Referring Provider Family Medicine; Visit Provider Student in an Organized Health Care Education/Training Program
DX: S32.82XD Multiple fractures of pelvis without disruption of pelvic ring, subsequent encounter for fracture with routine healing; W19.XXXD Unspecified fall, subsequent encounter
CPT/HCPCS: 99203; 99213; 72170

== ENCOUNTER 2023-08-16 20:58 | Outpatient (REF) | payer MEDICARE, SELFPAY ==
[2023-08-16 15:45] LABS: HCT 39.3 % (36.0-46.0); HGB 12.5 g/dL (11.2-15.7); MCH 28.2 pg (27.0-33.0); MCHC 31.8 % (32.0-36.0); MCV 89 fL (80-95); MPV 9.6 fL (8.0-11.0); Platelet Count 357 10^3/uL (130-400); RBC 4.44 10^6/uL (3.93-5.22); RDW 14.5 % (11.7-14.6); RDW-SD 47.3 fL; WBC 6.05 10^3/uL (4.4-10.8)
[2023-08-16 16:10] LABS: Albumin 3.6 g/dL (3.4-5.0); Alkaline Phosphatase 94 U/L (46-116); Calcium 9.2 mg/dL (8.5-10.1)
[2023-08-16 16:12] LABS: ALT 20 U/L (14-59); AST 15 U/L (15-37); Anion Gap 7.3 mmol/L (3-11); BUN 16 mg/dL (7-18); Bilirubin, Total 0.2 mg/dL (0.2-1.0); CO2 28.7 mmol/L (21.0-32.0); CREATININE 0.8 mg/dL (0.55-1.02); Chloride 104 mmol/L (98-107); Estimated GFR 73.06 (mL/min/1.73m2); Glucose 104 mg/dL (74-106); Potassium 4.4 mmol/L (3.5-5.1); Sodium 140 mmol/L (136-145); TROPONIN-I 8.9 ug/mL (4.0-12.0)
== END 2023-08-16 20:59 | disposition home or self-care (01) ==
LOC: NCHCN 20:58
PROVIDERS: PCP Family Medicine; Visit Provider Family Medicine
DX: G50.0 Trigeminal neuralgia (principal); Z79.899 Other long term (current) drug therapy; Z51.81 Encounter for therapeutic drug level monitoring
CPT/HCPCS: 80053; 85027; 80156

== ENCOUNTER 2024-09-15 17:19 | Outpatient (REF) | payer MEDICARE, SELFPAY ==
[2024-09-15 16:20] LABS: HCT 38.9 % (36.0-46.0); HGB 12.4 g/dL (11.2-15.7); MCH 28.6 pg (27.0-33.0); MCHC 31.9 % (32.0-36.0); MCV 90 fL (80-95); MPV 9.8 fL (8.0-11.0); Platelet Count 300 10^3/uL (130-400); RBC 4.33 10^6/uL (3.93-5.22); RDW 13.9 % (11.7-14.6); RDW-SD 45.8 fL; WBC 6.35 10^3/uL (4.4-10.8)
[2024-09-15 16:47] LABS: ALT 23 U/L (14-59); AST 20 U/L (15-37); Albumin 3.9 g/dL (3.4-5.0); Alkaline Phosphatase 96 U/L (46-116); BUN 19 mg/dL (7-18); Bilirubin, Total 0.29 mg/dL (0.2-1.0); CREATININE 0.9 mg/dL (0.55-1.02); Calcium 8.8 mg/dL (8.5-10.1); Chloride 108 mmol/L (98-107); Estimated GFR 63.04 (mL/min/1.73m2); Glucose 97 mg/dL (74-106); Potassium 4.4 mmol/L (3.5-5.1); Sodium 144 mmol/L (136-145); TROPONIN-I 7.3 ug/mL (4.0-12.0); Total Protein 6.9 g/dL (6.4-8.2)
== END 2024-09-15 17:20 | disposition home or self-care (01) ==
LOC: NCHCN 17:19
PROVIDERS: PCP Family Medicine; Visit Provider Family Medicine
DX: G50.0 Trigeminal neuralgia (principal); Z00.00 Encounter for general adult medical examination without abnormal findings
CPT/HCPCS: 80053; 85027; 80156

== ENCOUNTER 2024-10-29 01:48 | Outpatient (CLI) | payer MEDICARE, SELFPAY ==
--- NOTE | 2024-10-29 | DI.DEXA_ITS ---
Exam(s) XR DEXA BONE DENSITY W/WO CHLOE EXAM: XR DEXA BONE DENSITY W/WO CHLOE CLINICAL HISTORY: Z78.0 Asymptomatic menopausal state TECHNIQUE: Hologic Horizon C densitometer analysis of left hip, lumbar spine and left forearm. Lat eral survey image of the thoracic and lumbar spine. COMPARISON: DX DEXA BONE DENSITY WITH CHLOE from 05/20/2014 CR XR DEXA BONE DENSITY W/WO CHLOE from 06/04/2019 FINDINGS: Lateral view of the thoracic and lumbar spine shows no evidence of compression fractures. Bone mineral density measurements of the lumbar spine correspond to a total T-score of -1.6, in the osteopenic range. This is not significantly changed from the prior exams. Bone mineral density measurements of the left hip correspond to a total T-score of -2.5. This repre sents a 6.7 percent decrease from 603052. 4 percent decrease from 2013. The femoral neck T-score is -2.6, in the osteoporotic range.. Theleft forearm bone mineral density measurements correspond to a T-score of the distal 3rd of -2.9, in the osteoporotic range. This is not changed from 2019 but represents a 7.3 percent decrease fro m 2013. IMPRESSION: Osteopenia of the spine. Osteoporosis of the hip and forearm.
--- NOTE | 2024-10-29 08:57 | DI.MAMMO_ITS ---
Exam(s) MAMMO SCREENING EXAM: MAMMO SCREENING CLINICAL HISTORY: Z12.31 screening. TECHNIQUE: Bilateral full field digital CC and MLO mammographic images were obtained with 3D tomosyn thesis and utilizing computer aided detection (CAD). COMPARISON: Prior mammograms were reviewed. FINDINGS: There has been no significant change in the appearance and distribution of the fibroglandular tissue. There are no new spiculated masses nor malignant appearing microcalcification groups. There is no significant architectural distortion nor skin thickening-retraction. IMPRESSION: No radiographic evidence of malignancy. BI-RADS Category 1 - Negative Breast Density - Category C - Heterogeneously dense Breast density Category C or D implies that the patient has dense breast tissue. Dense breast tissue can make it harder to find cancer on a mammogram. Dense breast tissue is also associated with an incr eased risk of breast cancer. This information about the result of the mammogram report was provided to the patient to raise their awareness. Use this report when you speak with the patient about their risks for breast cancer, which includes their family history. At that time, you may recommend additional screening tests (Ultrasoun d or MRI) as these tests may add significant information. A negative radiographic report should not delay biopsy if a dominant or clinically suspicious mass is present. Up to ten percent of cancers are not identified on mammography. A negative report may reinforce clinical impression. Adenosis and dense breasts may obscure an underlying neoplasm. False positive reports average 6 to 10%. Patient will receive a letter notifying them of these results.
== END 2024-10-29 02:08 ==
PROVIDERS: PCP Family Medicine; Visit Provider Family Medicine
DX: Z78.0 Asymptomatic menopausal state (principal); Z12.31 Encounter for screening mammogram for malignant neoplasm of breast; M85.89 Other specified disorders of bone density and structure, multiple sites; Z13.820 Encounter for screening for osteoporosis
CPT/HCPCS: 77063; 77067; 77080

== ENCOUNTER 2024-11-12 22:25 | Outpatient (REF) | payer MEDICARE, SELFPAY ==
--- NOTE | 2024-11-12 14:00 | SKI_PTH ---
PATIENT: Iona Carvalho LOC: [facility]#:[id number] AGE/SX: 84/F ROOM: RE11/12/[address]: Magdalena Pritchett V : 1940 BED: DIS: 11/12/2024 SPEC #: [id number] RECD: 11/13/24 12:04 STATUS: MIRYAM FERMIN #: [id number] [place]: 11/12/24 14:[address]: Magdalena Pritchett V DEPT: Surgical Specimen RECD BY: Shae Law Tissues: 1 - SKIN BIOPSY(SHAVE/PUNCH) Procedures: SKIN LEVEL 4 Comments: [id number]
== END 2024-11-12 22:26 | disposition home or self-care (01) ==
LOC: NCHCN 22:25
PROVIDERS: PCP Family Medicine; Visit Provider Family Medicine
DX: L57.0 Actinic keratosis (principal)
CPT/HCPCS: 88305

== ENCOUNTER 2025-04-01 08:33 | Emergency (ER) | payer MEDICARE, SELFPAY ==
[2025-04-01 08:37] VITALS: BP 142/87; PULSE 79; RESP 18; TEMP 36.6; O2SAT 97
--- NOTE | 2025-04-01 08:46 | ED.GENADUL_ITS ---
Discharge Plan Disposition Patient Disposition: Home Condition: Stable Discharge Details Clinical Impression: Lip abscess Primary Care Provider: Magdalena Pritchett V ED Provider: Terry Lopez Home Meds and New Rx's Prescriptions: New mupirocin [Centany] 2 % ointment 1 applic topical BID Qty: 15 0RF Continued calcium carbonate 200 mg calcium (500 mg) tablet,chewable 500 mg PO DAILY PRN ibuprofen [Advil] 200 mg tablet 200 mg PO Q6H PRN carbamazepine [Tegretol XR] 100 mg Tablet Extended Release 12 Hr 200 mg PO BID Patient Comments: 11/25/18 PT states 2 tabs BID, and 1 tab at noon. PG carbamazepine 100 mg tablet,chewable 100 mg PO .NOON Patient Comments: CHEW AND SWALLOW 2 TABLETS BY MOUTH EVERY MORNING 1 TABLET AT NOON AND 2 TABLETS AT BEDTIME Discharge Instructions Instructions: Skin Abscess, Mupirocin Additional Instructions: You were seen in the emergency department for your growth on your lip we have many months that drained recently, pebble-like discharge as well as some pus, so you likely had a small infected sebaceous cyst which mineral deposit form a small infection around it. Please keep the area draining with hot compresses as we discussed multiple times per day, apply mupirocin ointment on the area, please return for any severe increase in swelling, facial swelling or redness, difficulty opening or closing your mouth. If this grows does come back in atypical I suggest going to the machine boss and having it biopsied. Referrals: Magdalena Pritchett MD [Primary Care Provider, Medicine] Discharge Data Discharge Date/Time-TO BE ENTERED AT DEPARTURE: 04/01/25 09:06 HPI General Date/Time Provider Initiated Documentation: 04/01/25 08:43 . HPI Narrative: 85 year-old female presents to ED today by POV/ambulating with a chief complaint of L lower lip lesion for the past 6 months, that was hard in the middle, recently became inflamed, popped open and drained a small amount of pus and a hard pebble-like object. Quality described as currently painless, drained, no radiation to vocal changes, neck swelling, tongue swelling, active drainage, fever, facial redness/swelling. Severity is described as mild. Palliating factors include popped with a sterilized needle at home. Provoking factors include nothing specific. Patient not anticoagulated. Related Data Home Medications ?Medication ?Instructions ?Recorded ?Confirmed carbamazepine 100 mg 200 mg PO BID 11/25/1807/25 tablet,extended release,12 hr (Tegretol XR) carbamazepine 100 mg chewable 100 mg PO .NOON 12/13/21 07/25/23 tablet calcium carbonate 500 mg PO DAILY PRN 12/20/21 07/25/23 ibuprofen 200 mg tablet (Advil) 200 mg PO Q6H PRN 01/1507/25/23 mupirocin 2 % topical ointment 1 applic topical BID #1 5 grams 04/01/25 (Centany) Previous Rx's ?Medication ?Instructions ?Recorded mupirocin 2 % topical ointment 1 applic topical BID #1 5 grams 04/01/25 (Centany) Allergies Allergy/AdvReac Type Severity Reaction Status Date / Time Penicillins Allergy Skin Rash Verified 07/24/23 14:30 General Stated Complaint: GenMedical JAMIN: 4 Review of Systems All systems reviewed & are unremarkable except as noted in HPI and below Exam Narrative Exam Narrative: GENERAL APPEARANCE: Well-nourished, non-toxic, awake and alert, atraumatic, no acute distress. SKIN: Warm, pink, dry, intact, without rashes/lesions/ulcerations. HEAD: Normocephalic, atraumatic, normal hair distribution for gender/age. EYES: Normal conjunctiva, no exudates on lids/lashes. ENT: Nares patent, no circumoral cyanosis, no facial swelling, small scabbed over defined lip abscess left lower canthus, left lower lip. No erythema or active drainage NECK: Supple, trachea midline, painless cervical ROM. LUNGS/CHEST: Non-labored respirations, normal A/P diameter, symmetrical expansion, no chest wall deformity HEART (CV/PV): No peripheral edema, no JVD. ABDOMEN: Soft, non-distended, no guarding. MSK: Normal ROM, no swelling/deformity to bilateral UEs or LEs, moving all extremities without weakness, no cyanosis, spine midline without tenderness, normal curvature. NEURO: Mental Status AAOx4 - alert to person, place, time, events No facial droop, no forehead involvement. Motor: No focal weakness - strength 5/5 in bilateral UEs and LEs, proximal and distal, symmetric. Sensory: sensation intact to light touch globally. Gait normal: patient ambulated without ataxia into ED room. PSYCH: euthymic, cooperative, pleasant, appropriate speech Course Vital Signs Vital signs: Vital Signs Temperature 36.6 C 04/01/25 08:37 Pulse 79 04/01/25 08:37 Respiratory Rate 18 04/01/25 08:37 Blood Pressure 142/87 H 04/01/25 08:37 Pulse Oximetry 97 04/01/25 08:37 Temperature 36.6 C 04/01/25 08:37 Temperature Source Tympanic 04/01/25 08:37 Pulse 79 04/01/25 08:37 Respiratory Rate 18 04/01/25 08:37 Blood Pressure 142/87 H 04/01/25 08:37 Blood Pressure Position Supine 04/01/25 08:37 Pulse Oximetry 97 04/01/25 08:37 Oxygen Delivery Method Room Air 04/01/25 08:37 Oxygen Flow Rate 0 04/01/25 08:37 Medical Decision Making This dictation utilizes [id number] dictation software and may contain unedited grammatical errors. 85 year-old female presents to ED today by POV/ambulating with a chief complaint of L lower lip lesion for the past 6 months, that was hard in the middle, recently became inflamed, popped open and drained a small amount of pus and a hard pebble-like object. Quality described as currently painless, drained, no radiation to vocal changes, neck swelling, tongue swelling, active drainage, fever, facial redness/swelling. Severity is described as mild. Palliating factors include popped with a sterilized needle at home. Provoking factors include nothing specific. Patients' medical history:. MRSA, history of malignant melanoma. Family and social history: Noncontributory. Pertinent exam findings / vital signs include small scabbed ulceration of the canthus of the left lower lip, no active drainage, no facial swelling or erythema, no other vesicular lesions, no neck swelling. Differential / pathologies of concern include infected sebaceous cyst, small abscess, malignancy. Diagnostic studies of: -None. Interventions of: -Rx for mupirocin. ED Course/Assessment/Plan: 85-year-old female had a 6-month period where she had nodular swelling on her left lower lip, recently became inflamed and was drained at home. The son reports taking a pebble-like piece out of it as well as minimal amount of pus, suspect she has a small abscess with an infected sebaceous cyst, I stressed applying hot compresses and mupirocin to the area to resolution. States that if it does not resolve or if it grows back she needs to have the area biopsied at dermatology visit. Findings not consistent with malignancy, angioedema, Lalo's angina. Disposition of lip abscess. Patient verbalized understanding of the plan and return to ED criteria and engaged in shared decision making. Medical Records Medical records reviewed: Yes I reviewed the patient's medical records. [facility] All Active Problems Lip abscess (Acute) Asymmetrical sensorineural hearing loss (Acute) Multiple closed stable lateral compression fractures of pelvis (Acute ~02/02/23) Right patella fracture (Acute 12/13/21) Status post cataract extraction and insertion of intraocular lens of left eye (Chronic 11/28/18) Family history of colon cancer (Acute) Post-menopausal bleeding (Acute) History of fall (Acute) Memory deficit (Acute) Restless leg syndrome (Acute) Osteoporosis (Chronic) Skin lesion (Acute) Trigeminal neuralgia (Acute) Rx with Carbamazepine. Lung nodule (Acute) Urethral caruncle (Acute) 06/2020. Most likely etiology of postmenopausal bleeding - History of endometrial biopsy (Acute) 06/2020: Result-atrophic cystic changes. No dysplasia. 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 Pt removes and cleans it on reg basis. Status post cataract extraction and insertion of intraocular lens of right eye (Chronic 01/05/19) Medical History Palpitations Contact dermatitis Cataract Knee pain, left Breast lump or mass Late effect of pelvic fracture Inner ear dysfunction Hx of fracture of wrist Right closed reduction History of cardiac murmur It was something that was dx when I was a sophmore in highschool, but nobody has heard it, and I've never had an incident. MRSA Meniere's disease History of malignant melanoma Uterine prolapse (05/15/13) Osteopenia Hypercholesterolemia HEART PALPITATIONS GERD Surgical History Skin Cancer Removal LYMPH NODE REMOVAL R Arm, Axilla - Pt states no BP or IV's to R arm Cholecystectomy COLONOSCOPY Family History Mother Personal history of malignant neoplasm COLON Father Dementia Brother No problems noted. Social History Smoking/Tobacco Use Status: Former Tobacco Use Quit Date: 08/26/01 Smoking risk assessment performed?: Yes Alcohol Intake: current Alcohol Intake frequency: a few times a week Alcohol type: wine Drug use: Never Substance use type: does not use Household members: spouse Housing: house current occupation: Retired. Current gender identity: female Do you feel safe at home: Yes Do you feel safe in your relationship?: Yes History History 3 Para 3 Hx # Term Pregnancies 3 Multiple births Hx # Pregnancies Ectopic pregnancies AB induced Hx Number of Living Children AB spontaneous
== END 2025-04-01 09:06 | disposition home or self-care (01) ==
LOC: ER 09:34
PROVIDERS: Emergency Provider Physician Assistant; PCP Family Medicine
DX: K13.0 Diseases of lips (principal); Z87.891 Personal history of nicotine dependence
CPT/HCPCS: 99283